=== PATIENT | male | born 1970 | race Caucasian/White ===

== ENCOUNTER 2019-01-27 15:00 | Outpatient (CLI) | payer BC, SELFPAY ==
--- NOTE | 2019-01-27 15:05 | DIABASSESS_ITS ---
DESCRIPTION/ASSESSMENT: Michel Carolina presents with his partner, Camila, for nutrition consult to improve diabetes outcomes. NUTRITION: Michel has already cut his portions and milk consumption and is eating little bread. He does drink regular pepsi for the caffeine some days, and especially when he is plowing in the middle of the night. Breakfast is a yogurt shake; lunch is whatever he can get with today being pizza; supper is meat starch and vegetable. He does have ~1 cup ice cream in the evening. MEDICATION: A1c 7.9 12/19/18 He is on all of the major medication categories including Metformin, glipizide, bydureon, januvia, invokana and Lantus 35units. He does not know if any of them are effective. MONITORING: Fasting blood sugar 140-170 now. He is not sure what fasting sugars were prior to his last PCP visit. PHYSICAL ACTIVITY: Active at work but does no regular physical activity. He does have sleep apnea and uses it when he doesn't fall asleep first. INTERVENTION: DSME is provided in the following AADE 7 areas based on patients interest and assessment of needs: Food Guidelines - reviewed food guide especially for Camila for meal planning. Identified carbohydrate sources and portions and considering to glycemic index. Focused on lunch and snacks to increase vegetable intake. Physical Activity - discussed options. He will bring up his weights and use them when he has time. Medication - discussed next step of mealtime insulin dosing. Explained food and correction coverage and that it would likely replace Glipizide. Discussed if need Bydureon and Januvia together. Monitoring - discussed getting better sense of blood sugars by testing before supper/bedtime occasionally. He will do a self study over the weekend and we will talk Sunday. ACTION PLAN: Increase vegetables at lunch Monitor blood sugars before supper and bedtime for 2-3 days Begin lifting weights starting slowly NOTE: He does not have his medication list but believes he is on Bydureon and Januvia which may be redundant. We will follow up by telephone in 1 week. Individual DSME/T ____ units billed TIME IN: OUT: No DM group education series being offered at this time.
== END 2019-01-27 15:20 ==
PROVIDERS: PCP Nurse Practitioner Family; Visit Provider Dietitian, Registered
DX: Z71.3 Dietary counseling and surveillance (principal); E11.9 Type 2 diabetes mellitus without complications; Z79.4 Long term (current) use of insulin
CPT/HCPCS: 97802

== ENCOUNTER 2019-03-21 07:44 | Outpatient (REF) | payer BC, SELFPAY ==
[2019-03-21 20:50] LABS: INR 0.9 (0.9-1.1); PTT Activated 24.4 sec (21.0-31.4); Prothrombin Time 9.3 sec (9.3-11.0)
[2019-03-21 20:59] LABS: Abs Immature Grans 0.08 k/cumm (0.0-0.09); Absolute Basophil Count 0.01 k/cumm (0.0-0.2); Absolute Eosinophil Count 0.08 k/cumm (0.0-0.7); Absolute Lymphocyte Count 1.41 k/cumm (1.2-3.4); Absolute Monocyte Count 0.49 k/cumm (0.11-0.7); Absolute Neutrophil Count 4.79 k/cumm (1.2-6.7); Basophils % 0.1; Eosinophils % 1.2; HCT 44.7 % (40.0-50.0); HGB 15.2 g/dL (13.5-17.5); Immature Grans % 1.2; Lymphocytes % 20.6; Mean Corpuscular Hemoglobin 28.5 pg (27.0-33.0); Mean Corpuscular Volume 83.9 fL (80-95); Mean Platelet Volume 10.6 fL (8.0-11.0); Monocytes % 7.1; Neutrophils % 69.8; Platelet Count 282 x1000/uL (130-400); RBC 5.33 m/cumm (4.50-6.00); RBC Distribution Width 13.9 % (11.8-14.1); White Blood Cell Count 6.86 k/cumm (4.4-10.8)
[2019-03-21 21:15] LABS: ALT 51 U/L (12-78); AST 17 U/L (15-37); Alkaline Phosphatase 49 U/L (46-116); Anion Gap 11.5 mmol/L (3-11); BUN 14 mg/dL (7-18); Bilirubin, Total 0.5 mg/dL (0.2-1.0); CO2 23.5 mmol/L (21.0-32.0); CREATININE 1.04 mg/dL (0.70-1.30); Calcium 9.6 mg/dL (8.5-10.1); Chloride 106 mmol/L (98-107); Glucose 142 mg/dL (70-100); Potassium 4.2 mmol/L (3.5-5.1); Sodium 141 mmol/L (136-145); Total Protein 7.2 g/dL (6.4-8.2)
== END 2019-03-21 08:04 ==
LOC: NCHCN 07:44
PROVIDERS: PCP Nurse Practitioner Family; Visit Provider Nurse Practitioner Family
DX: R13.10 Dysphagia, unspecified (principal); J30.9 Allergic rhinitis, unspecified; K76.0 Fatty (change of) liver, not elsewhere classified; M10.9 Gout, unspecified; G47.30 Sleep apnea, unspecified; E11.9 Type 2 diabetes mellitus without complications; E78.1 Pure hyperglyceridemia; E66.9 Obesity, unspecified
CPT/HCPCS: 80053; 85025; 85610; 85730

== ENCOUNTER 2019-07-25 06:52 | Day surgery (SDC) | payer BC, SELFPAY ==
[2019-07-25 07:15] VITALS: BP 126/83; PULSE 77; RESP 16; TEMP 36.5; O2SAT 96
[2019-07-25] MEDS: Lactated Ringers 1,000 ML 80 ML IV (07:34)
--- NOTE | 2019-07-25 08:10 | PDOC.DSDIS_ITS ---
Discharge Plan Disposition Patient Disposition: HOME Condition: Good Discharge Details Reason For Visit: EGD, colonoscopy Attending Provider: Estrella Deshpande Primary Care Provider: Patria Strong Home Meds and New Rx's Prescriptions: New omeprazole 20 mg capsule,delayed release(DR/EC) 20 mg PO DAILY Qty: 30 RF: 2 Continued Bydureon 2 mg/0.65 mL pen injector 2 mg SC QWEEK RF: 0 lisinopril 5 MG tablet 10 mg PO DAILY RF: 0 Januvia 25 MG tablet 100 mg PO DAILY RF: 0 glipizide 10 MG tablet extended release 24hr 10 mg PO BID RF: 0 gemfibrozil 600 MG tablet 600 mg PO BID RF: 0 aspirin 81 MG tablet,chewable 81 mg PO DAILY RF: 0 metformin 500 MG tablet extended release 24hr 2,000 mg PO DAILY RF: 0 indomethacin 50 MG capsule 50 mg PO TID Qty: 21 RF: 0 Lantus U-100 Insulin 100 unit/mL Solution 20 unit SUBCUT QHS RF: 0 atorvastatin 40 MG tablet 40 mg PO DAILY RF: 0 Invokana 300 MG tablet 300 mg PO DAILY RF: 0 Discontinued polyethylene glycol 3350 17 gram/dose powder 238 g PO ONCE Qty: 238 RF: 0 bisacodyl [Dulcolax (bisacodyl)] 5 mg tablet,delayed release (DR/EC) 5 mg PO ONCE Qty: 4 RF: 0 Discharge Instructions Additional Instructions: Findings: Your EGD showed a shallow stomach ulcer and inflammation of the esophagus. A prescription for omeprazole has been sent in. The ulcer may be related to taking aspirin or indomethicin. Two polyps were removed from the colon. My office will contact y [place] with biopsy results. Follow up: Plan for a follow up colonoscopy in 5 years. Please call if you develop: fevers >101.5 Nausea or Vomiting Abdominal pain that is not transient DAY SURGERY UNIT POST COLONOSCOPY INSTRUCTIONS 1. Because there will be medication in your system for the next 24 hours, you may feel a little sleepy. Your coordination will be affected. Therefore: a. Do not drive or operate dangerous equipment for 24 hours. b. Do not drink alcohol beverages for 24 hours (not even beer). c. Plan to go home and rest for the day. 2. Generally there are no restrictions on your activity after a day or so has gone by, but you may feel a bit fatigued for a few days. 3 After you arrive home you may have a light meal and return to a normal diet as you can tolerate it without feeling sick to your stomach. 4. After surgery, you may feel pain or discomfort. This should be only transient, but if it persists please contact your doctor. 5. If there are any questions regarding the findings of your procedure, please feel free to contact your doctor. 6. If you are unable to contact your doctor with a problem, contact the hospital at [phone]. 7. Continue all your regular medications unless directed otherwise. I understand the above instructions and have no questions. Signature of Patient or Responsible Adult Escort Date/Time Name of Responsible Adult Escort Signature of Nurse Date/Time Stand Alone Forms: Luzmaria Lind (JONGU) Activity:: Activity as Tolerated Diet:: As Tolerated Discharge Orders Discharge Orders: Discharge Order (Routine); Ordered 07/25/19 Ordered By: Estrella Deshpande DS: Diagnosis Discharge Diagnosis (1) Gastric ulcer: Status: Acute (2) Esophagitis: Status: Acute (3) Colon polyps: Status: Acute
--- NOTE | 2019-07-25 08:30 | BOWEL_PTH ---
PATIENT: Michel Carolina JR LOC: NURIS U#:[id number] AGE/SX: 49/M ROOM: RE07/25/[address]: Estrella Deshpande MD : 1970 BED: DIS: 07/25/2019 SPEC #: [id number] RECD: 07/25/19 11:50 STATUS: NASREEN REChai #: [id number] BRAD: 07/25/19 08:[address]: Estrella Deshpande DEPT: Surgical Specimen RECD BY: Miracle Peña ENTERED: 07/25/19 11:51 SP TYPE: Bowel OTHR DR: Patria Strong Tissues: 1 - STOMACH BIOPSY 2 - BIOPSY BOWEL 3 - BIOPSY BOWEL Procedures: GROSS AND MICRO LEVEL 4 Comments: [id number]
[2019-07-25 09:33] VITALS: BP 109/73; PULSE 66; RESP 16; TEMP 36.3; O2SAT 96
--- NOTE | 2019-07-25 12:51 | ENDO_ITS ---
DATE OF PROCEDURE: July 25, 2019 PREOPERATIVE DIAGNOSIS: 1. History of esophageal ulcer. 2. Family history of colon cancer. POSTOPERATIVE DIAGNOSIS: 1. Esophagitis. 2. Shallow gastric ulcer. 3. Colon polyps. PROCEDURE: 1. Esophagogastroduodenoscopy with biopsy. 2. Colonoscopy with snare polypectomy. SURGEON: Estrella Deshpande M.D. ANESTHESIA: General. INDICATIONS: This is a 49-year-old man who presents for his first colon evaluation. He had a grandf ather and an aunt on the same side of the family with colon cancer. He is asymptomatic. He also had an upper endoscopy last year that showed an esophageal ulcer. He denies any symptoms of significant heartburn or dysphagia. PROCEDURE: He was placed in the left lateral decubitus position. Propofol was titrated to sedation. The scope was advanced into his esophagus under direct visualization and down into the stomach and duodenum. There was no duodenitis or ulcers noted. In the gastric antrum there was a shallow ulcer with a black eschar. The periphery of this was biopsied. This is likely related to his aspirin and/ or indomethacin usage. Retroflex view of the fundus and lesser curvature showed no other abnormaliti es. The GE junction exhibited a linear area of esophagitis that exhibited some healing. There was n o evidence of Taylor's esophagus or strictures. The air was suctioned from the stomach and the scop e withdrawn with no other esophageal lesions found. Digital rectal examination revealed no abnormalities. The scope was advanced to the cecum without di fficulty. The ileocecal valve and appendiceal orifice were clearly identified. Across from the ileo cecal valve there was a < 1 cm polyp that was removed with snare polypectomy. I did not use cautery due to its location in the cecum. This was retrieved for pathology. No other abnormalities were se en throughout the ascending or transverse colon. In the descending colon at about 50 cm there was an approximately 1 cm polyp on a narrow stock. This was removed using the snare with cautery and a hem ostatic clip applied to the base as a precaution. The polyp could be suctioned free and was retrieve d for pathology. No other abnormalities were seen throughout the descending, sigmoid colon or rectum , including on retroflex view. He tolerated the procedure well and was stable to recovery. I have s ent in a prescription for a daily proton pump inhibitor. It is anticipated he will need a colonoscop y again in five years pending biopsy results. cc: Patria Strong A.P.R.N.
== END 2019-07-25 10:06 | disposition home or self-care (01) ==
PROVIDERS: PCP Nurse Practitioner Family; Visit Provider Surgery
PROC: (CPT 45385; principal; 2019-07-25 08:15)
DX: Z12.11 Encounter for screening for malignant neoplasm of colon (principal); Z80.0 Family history of malignant neoplasm of digestive organs; K29.00 Acute gastritis without bleeding; D12.0 Benign neoplasm of cecum; D12.4 Benign neoplasm of descending colon; I10 Essential (primary) hypertension; E11.9 Type 2 diabetes mellitus without complications; Z79.84 Long term (current) use of oral hypoglycemic drugs
CPT/HCPCS: 45385; 43239; 88305

== ENCOUNTER 2019-10-24 07:15 | Outpatient (CLI) | payer BC, SELFPAY ==
[2019-10-24 08:23] LABS: ALT 57 U/L (16-63); AST 25 U/L (15-37); Alkaline Phosphatase 70 U/L (46-116); Anion Gap 8.6 mmol/L (3-11); BUN 16 mg/dL (7-18); Bilirubin, Total 0.4 mg/dL (0.2-1.0); CO2 26.4 mmol/L (21.0-32.0); CREATININE 0.93 mg/dL (0.70-1.30); Calcium 9.2 mg/dL (8.5-10.1); Calculated LDL 2 mg/dL (<100); Chloride 103 mmol/L (98-107); Cholesterol 99 mg/dL (<200); Glucose 187 mg/dL (74-106); HDL Cholesterol 28 mg/dL (40-60); Potassium 4.4 mmol/L (3.5-5.1); Sodium 138 mmol/L (136-145); Total Protein 7.1 g/dL (6.4-8.2); Triglyceride 345 mg/dL (<150)
[2019-10-24 16:14] LABS: LDL CHOLESTEROL 41 mg/dL (<100)
== END 2019-10-24 07:35 ==
PROVIDERS: PCP Nurse Practitioner Family; Visit Provider Nurse Practitioner Family
DX: E11.9 Type 2 diabetes mellitus without complications (principal); E78.1 Pure hyperglyceridemia; R16.0 Hepatomegaly, not elsewhere classified; K76.0 Fatty (change of) liver, not elsewhere classified; E66.9 Obesity, unspecified
CPT/HCPCS: 36415; 80053; 80061; 83721; 83036

== ENCOUNTER 2020-12-03 14:45 | Outpatient (REF) | payer BC, SELFPAY ==
[2020-12-03 21:01] LABS: Uric Acid 6.1 mg/dL (3.5-7.2)
== END 2020-12-03 14:46 | disposition home or self-care (01) ==
LOC: NCHCN 14:45
PROVIDERS: PCP Nurse Practitioner Family; Visit Provider Nurse Practitioner Family
DX: M10.9 Gout, unspecified (principal)
CPT/HCPCS: 84550

== ENCOUNTER 2021-02-08 21:13 | Outpatient (REF) | payer BC, SELFPAY ==
[2021-02-08 13:25] LABS: Abs Immature Grans 0.04 10^3/uL (0.0-0.06); Absolute Basophil Count 0.03 10^3/uL (0.0-0.2); Absolute Eosinophil Count 0.07 10^3/uL (0.0-0.7); Absolute Lymphocyte Count 1.29 10^3/uL (1.2-3.4); Absolute Monocyte Count 0.33 10^3/uL (0.1-0.8); Absolute Neutrophil Count 3.16 10^3/uL (1.2-6.7); Basophils % 0.6; Eosinophils % 1.4; HCT 44.4 % (40.0-50.0); HGB 14.6 g/dL (13.5-17.5); Immature Grans % 0.8; Lymphocytes % 26.2; MCH 27.2 pg (27.0-33.0); MCHC 32.9 % (32.0-36.0); MCV 82.7 fL (80-95); MPV 9.8 fL (8.0-11.0); Monocytes % 6.7; Neutrophils % 64.3; Nucleated RBC 0 %; Platelet Count 270 10^3/uL (130-400); RBC 5.37 10^6/uL (4.36-5.78); RDW 13.5 % (11.8-14.1); RDW-SD 40.4 fL; WBC 4.92 10^3/uL (4.4-10.8)
[2021-02-08 14:48] LABS: ALT 81 U/L (16-63); AST 45 U/L (15-37); Alkaline Phosphatase 61 U/L (46-116); Anion Gap 12.1 mmol/L (3-11); BUN 19 mg/dL (7-18); Bilirubin, Total 0.6 mg/dL (0.2-1.0); CO2 25.9 mmol/L (21.0-32.0); Calcium 9.1 mg/dL (8.5-10.1); Calculated LDL 31 mg/dL (<100); Chloride 102 mmol/L (98-107); Cholesterol 105 mg/dL (<200); Glucose 250 mg/dL (74-106); HDL Cholesterol 35 mg/dL (40-60); Magnesium 1.4 mg/dL (1.8-2.4); Potassium 4.3 mmol/L (3.5-5.1); Sodium 140 mmol/L (136-145); Triglyceride 195 mg/dL (<150); Vitamin B12 695 pg/mL (193-986)
[2021-02-08 15:01] LABS: Uric Acid 4.9 mg/dL (3.5-7.2)
== END 2021-02-08 21:14 | disposition home or self-care (01) ==
LOC: NCHCN 21:13
PROVIDERS: PCP Nurse Practitioner Family; Visit Provider Nurse Practitioner Family
DX: E11.9 Type 2 diabetes mellitus without complications (principal); E78.1 Pure hyperglyceridemia; K76.0 Fatty (change of) liver, not elsewhere classified; R16.0 Hepatomegaly, not elsewhere classified; E66.9 Obesity, unspecified; K74.60 Unspecified cirrhosis of liver
CPT/HCPCS: 80053; 80061; 82607; 83735; 84550; 85025

== ENCOUNTER 2021-02-28 18:20 | Outpatient (REF) | payer BC, SELFPAY ==
[2021-02-28 20:47] LABS: Magnesium 1.6 mg/dL (1.8-2.4)
== END 2021-02-28 18:21 | disposition home or self-care (01) ==
LOC: NCHCN 18:20
PROVIDERS: PCP Nurse Practitioner Family; Visit Provider Nurse Practitioner Family
DX: E83.42 Hypomagnesemia (principal)
CPT/HCPCS: 83735

== ENCOUNTER 2021-03-17 08:47 | Outpatient (REF) | payer BC, SELFPAY ==
[2021-03-17 13:25] LABS: Magnesium 1.5 mg/dL (1.8-2.4)
== END 2021-03-17 08:48 | disposition home or self-care (01) ==
LOC: NCHCN 08:47
PROVIDERS: PCP Nurse Practitioner Family; Visit Provider Nurse Practitioner Family
DX: E83.42 Hypomagnesemia (principal)
CPT/HCPCS: 83735

== ENCOUNTER 2021-05-05 16:09 | Outpatient (REF) | payer BC, SELFPAY ==
[2021-05-05 20:33] LABS: Magnesium 1.6 mg/dL (1.8-2.4)
== END 2021-05-05 16:10 | disposition home or self-care (01) ==
LOC: NCHCN 16:09
PROVIDERS: PCP Nurse Practitioner Family; Visit Provider Nurse Practitioner Family
DX: E83.42 Hypomagnesemia (principal); K76.0 Fatty (change of) liver, not elsewhere classified; E11.9 Type 2 diabetes mellitus without complications; R16.0 Hepatomegaly, not elsewhere classified
CPT/HCPCS: 83735

== ENCOUNTER 2021-08-08 14:01 | Outpatient (REF) | payer BC, SELFPAY ==
[2021-08-08 20:55] LABS: Abs Immature Grans 0.08 10^3/uL (0.0-0.06); Absolute Basophil Count 0.03 10^3/uL (0.0-0.2); Absolute Eosinophil Count 0.04 10^3/uL (0.0-0.7); Absolute Lymphocyte Count 1.46 10^3/uL (1.2-3.4); Absolute Monocyte Count 0.47 10^3/uL (0.1-0.8); Absolute Neutrophil Count 4.31 10^3/uL (1.2-6.7); Basophils % 0.5; Eosinophils % 0.6; HGB 14.8 g/dL (13.5-17.5); Immature Grans % 1.3; Lymphocytes % 22.8; MCH 27.6 pg (27.0-33.0); MCHC 33.6 % (32.0-36.0); MCV 81.9 fL (80-95); Monocytes % 7.4; Neutrophils % 67.4; Nucleated RBC 0 %; Platelet Count 312 10^3/uL (130-400); RBC 5.37 10^6/uL (4.36-5.78); RDW 13.4 % (11.8-14.1); RDW-SD 39.7 fL; WBC 6.39 10^3/uL (4.4-10.8)
[2021-08-08 21:14] LABS: ALT 71 U/L (16-63); AST 38 U/L (15-37); Albumin 4.5 g/dL (3.4-5.0); Alkaline Phosphatase 52 U/L (46-116); Anion Gap 10.9 mmol/L (3-11); BUN 17 mg/dL (7-18); Bilirubin, Total 0.4 mg/dL (0.2-1.0); CO2 28.1 mmol/L (21.0-32.0); CREATININE 0.9 mg/dL (0.70-1.30); Calcium 9.8 mg/dL (8.5-10.1); Chloride 106 mmol/L (98-107); Glucose 143 mg/dL (74-106); Magnesium 1.9 mg/dL (1.8-2.4); Potassium 4.5 mmol/L (3.5-5.1); Sodium 145 mmol/L (136-145); Total Protein 7.5 g/dL (6.4-8.2)
== END 2021-08-08 14:02 | disposition home or self-care (01) ==
LOC: NCHCN 14:01
PROVIDERS: PCP Nurse Practitioner Family; Visit Provider Nurse Practitioner Family
DX: E83.42 Hypomagnesemia (principal); E11.9 Type 2 diabetes mellitus without complications; K29.70 Gastritis, unspecified, without bleeding; K74.60 Unspecified cirrhosis of liver; M10.9 Gout, unspecified
CPT/HCPCS: 80053; 83735; 85025

== ENCOUNTER 2021-12-13 15:30 | Emergency (ER) | payer OTHER, SELFPAY ==
--- NOTE | 2021-12-13 15:45 | DI.US_ITS ---
Exam(s) US LOWER EXTREMITY VENOUS LT EXAM: US LOWER EXTREMITY VENOUS LT CLINICAL HISTORY: calf pain. TECHNIQUE: Lower extremity venous ultrasound performed using grayscale, color-flow, and spectral Do ppler analysis. COMPARISON: No exams were available for comparison FINDINGS: The common femoral, femoral and popliteal veins demonstrate normal compressibility, augmentation, and color Doppler. The posterior tibial veins are patent. No saphenous vein thrombosis or other superfi cial venous thrombosis is seen. No Gupta's cyst is seen. There is localized edema in the subcutaneo us fat. IMPRESSION: Localized edema. No drainable fluid collection. No evidence of DVT. DATA REPOSITORY:
[2021-12-13 15:52] VITALS: BP 137/87; PULSE 94; RESP 18; TEMP 36.4; O2SAT 97
--- NOTE | 2021-12-13 15:58 | W.ED.GENAD ---
Discharge Plan Disposition Patient Disposition: HOME Condition: Good Discharge Details Clinical Impression: Muscle strain Primary Care Provider: Patria Strong ED Provider: Fannie Valero Home Meds and New Rx's Prescriptions: Continued Bydureon 2 mg/0.65 mL pen injector 2 mg SC QWEEK 0RF lisinopril 5 MG tablet 10 mg PO DAILY 0RF Januvia 25 MG tablet 100 mg PO DAILY 0RF Label Comments: not sure of dose glipizide 10 MG tablet extended release 24hr 10 mg PO BID 0RF gemfibrozil 600 MG tablet 600 mg PO BID 0RF aspirin 81 MG tablet,chewable 81 mg PO DAILY 0RF metformin 500 MG tablet extended release 24hr 2,000 mg PO DAILY 0RF indomethacin 50 MG capsule 50 mg PO TID Qty: 21 0RF Rx Instructions: take three times daily with food until symptoms resolved Lantus U-100 Insulin 100 unit/mL Solution 20 unit SUBCUT QHS 0RF omeprazole 20 mg capsule,delayed release(DR/EC) 20 mg PO DAILY Qty: 30 2RF atorvastatin 40 MG tablet 40 mg PO DAILY 0RF Invokana 300 MG tablet 300 mg PO DAILY 0RF Discharge Instructions Instructions: Muscle Strain (ED) Additional Instructions: Your ultrasound to concerning for fluid collection. Did not show any blood clot. This likely represents a small muscle tear. Please encourage rest, ice, elevation. Tylenol and ibuprofen as needed for discomfort. Please continue with compression over this area to help with any swelling and discomfort. You may continue with the Vito wrap or alternatively, may purchase a compression hose [id number]. I would like you to follow-up with your primary care provider next week for reevaluation. If you develop any new or worsening symptoms please seek care urgently once again. In the interim, particularly when you are trying to elevate and rest her calf, please review the ankle pumps we discussed to help prevent blood clot forming. Referrals: Patria Strong [Primary Care Provider] - Discharge Data Discharge Date/Time-TO BE ENTERED AT DEPARTURE: 12/13/21 16:51 Medical Decision Making Patient is a pleasant 51-year-old gentleman presenting today with chief complaint of left calf pain. He reports that he came on suddenly when he stepped back in his truck while at work. Believes that he may have stepped on or stumbled on something. Since then, he been having significant burning pain in the posterior calf. States that this is worse with movement, particularly dorsiflexion of the ankle. He denies any injuries from the incident, did not fall. Denies numbness or tingling. Patient is not anticoagulated. He denies history of DVT or PE. Denies shortness of breath. No recent change in medication. Patient not anticoagulated. He denies being sedentary, smoking, recent travel. Patient primarily concern for potential torn muscle. On exam, patient appears nontoxic. He does have a positive Leslie test and pain in the posterior calf. No pain anteriorly. 2+ distal pulses. Sensation is intact. Range of motion and strength is intact. He does have several varicosities in the same region but no palpable cords, erythema. His mechanism of injury is more consistent with musculoskeletal injury. However, the location exam, particularly with his varicosities, does have me concerned for DVT. Will give Tylenol ibuprofen to help with discomfort. Again, primarily because I do have fairly low suspicion for DVT. We will move forward with ultrasound exam. Also considered potentially ruptured Gupta's cyst although the pain seems fairly inferior to this area. He is not having pain with mariia weightbearing, no pain with palpation of the tibia or fibula, and without the fall I have low suspicion for fracture at this time. FINDINGS: The common femoral, femoral and popliteal veins demonstrate normal compressibility, augmentation, and color Doppler. The posterior tibial veins are patent.? No saphenous vein thrombosis or other superficial venous thrombosis is seen.? No Gupta's cyst is seen.? There is localized edema in the subcutaneous fat. IMPRESSION: Localized edema.? No drainable fluid collection.? No evidence of DVT.? Per technical communication teacher, she is concerned for possible muscle tear based on the area of fluid collection. This does fit more with the patient's history. Discussed the findings with the patient. Agrees with my current elevation. Tylenol and ibuprofen for discomfort. Will apply Vito wrap to get some compression. Return precautions were discussed. Advise follow-up with primary care in 1 week for reevaluation. All of his questions and concerns were addressed and he is in agreement with this plan. HPI General Date/Time Provider Initiated Documentation: 12/13/21 15:34. Limitations to Documentation: no limitations. Information obtained by: patient and RN notes reviewed. History of Present Illness 51 year old M presents to the emergency department with the chief complaint of left calf pain, described as severe, with intensity rated at 7. Quality is described as burning, and is localized to the left and lower extremity. Patient reports no radiation. Patient started experiencing this minute(s) and it has been constant. improves with Immobilization improves symptom(s), Movement worsens symptoms . Patient notes no other symptoms.. Patient did receive the following treatments prior to arrival, none Related Data Home Medications Medication Instructions Recorded Confirmed aspirin 81 mg chewable tablet 81 mg PO DAILY 08/15/15 07/25/19 gemfibrozil 600 mg tablet 600 mg PO BID 08/15/15 07/25/19 glipizide 10 mg tablet, extended 10 mg PO BID 08/15/15 07/25/19 release 24 hr lisinopril 5 mg tablet 10 mg PO DAILY 08/15/15 07/25/19 sitagliptin 25 mg tablet (Januvia) 100 mg PO DAILY 08/15/15 07/25/19 metformin 500 mg tablet,extended 2,000 mg PO DAILY 11/14/15 07/25/19 release 24hr indomethacin 50 mg capsule 50 mg PO TID #21 cap 02/20/16 07/25/19 atorvastatin 40 mg tablet 40 mg PO DAILY 10/17/17 07/25/19 canagliflozin 300 mg tablet 300 mg PO DAILY 10/17/17 07/25/19 (Invokana) exenatide microspheres 2 mg/0.65 2 mg SC QWEEK 07/03/19 07/25/19 mL subcutaneous pen injector (Bydureon) insulin glargine 100 unit/mL 20 unit SUBCUT QHS 07/23/19 07/25/19 subcutaneous solution (Lantus U-100 Insulin) omeprazole 20 mg capsule,delayed 20 mg PO DAILY #30 cap 07/25/19 release Previous Rx's Medication Instructions Recorded indomethacin 50 mg capsule 50 mg PO TID #21 cap 02/20/16 omeprazole 20 mg capsule,delayed 20 mg PO DAILY #30 cap 07/25/19 release Allergies Allergy/AdvReac Type Severity Reaction Status Date / Time environmental Allergy Mild Uncoded 07/25/19 07:11 General Stated Complaint: Orthopedic ALEXANDRE: 4 Review of Systems Constitutional Constitutional: Reports as per HPI, Denies fever(s) and Denies weakness Cardiovascular Cardiovascular: Reports as per HPI and Denies dyspnea Respiratory Respiratory: Reports as per HPI, Denies cough, Denies pain on inspiration and Denies dyspnea Musculoskeletal Musculoskeletal: Reports as per HPI and Denies tingling Integumentary/Breasts Skin/Breast: Reports as per HPI, Denies rash and Denies wounds Neurologic Neurologic: Reports as per HPI, Denies tingling, Denies paresthesias and Denies weakness PFSH All Active Problems (Updated 12/13/21 @ 16:40 by DREA Keating) Muscle strain (Acute) Colon polyps (Acute) Esophagitis (Acute) Gastric ulcer (Acute) Gastritis (Acute) Medical History (Updated 12/13/21 @ 16:40 by DREA Keating) Acute pancreatitis Allergic rhinitis Constipation Diabetes Gout Hypertriglyceridemia Obesity Sleep apnea Surgical History (Updated 07/25/19 @ 09:15 by Estrella Deshpande MD) Appendectomy EGD - MAC (11/13/17) Repair of inguinal hernia S/P colonoscopy 07/25/19 tubes in ears Vasectomy Family History (Updated 10/26/17 @ 10:58 by Clair Paniagua MD) Other Colon cancer Diabetes Heart disease Social History (Updated 07/03/19 @ 15:45 by DREA Charles) Smoking/Tobacco Use Status: Never Smoking risk assessment performed?: Yes Alcohol Intake: current Alcohol Intake frequency: holidays/special occasions only Drug use: Never Current gender identity: male Do you feel safe at home: Yes Do you feel safe in your relationship?: Yes Exam Const General: cooperative, healthy appearing, comfortable, no acute distress, well developed and well groomed Nutritional Appearance: average body habitus and well nourished Orientation: alert and awake Resp Effort & Inspection: normal respiratory effort, able to speak in complete sentences and no respiratory distress Cardio Rate: regular rate Rhythm: regular rhythm Skin General skin exam: no rashes or lesions noted Lesions: no lesions Rashes: no rashes Trauma: no lacerations or abrasions Neuro General: patient alert and patient awake Cognition: normal cognition Speech: speech normal Gait: normal gait Motor: muscle tone normal throughout Sensory Exam: no sensory deficits noted Extrem Upper/lower leg/hip images: 1. Area of maximal discomfort. No pain in posterior knee. Patient is 2+ distal pulses. Intact capillary refill. Full range of motion of the knee and ankle. He does have increased comfort with dorsiflexion of the ankle. Sensation is intact. Patient does have positive Homans' sign. No discoloration. No palpable cord. Patient does have several varicosities noted. They seem to be present on both legs but more prominent on the left lower extremity on the posterior calf. No pain with palpation over the tibia or the fibula. Psych Appearance: grossly normal and well kempt Mental Status: mental status grossly normal Speech and Movement: speech and movement normal Course Vital Signs Vital signs: Vital Signs Temperature 36.4 C L 12/13/21 15:52 Pulse 94 H 12/13/21 15:52 Respiratory Rate 18 12/13/21 15:52 Blood Pressure 137/87 12/13/21 15:52 Pulse Oximetry 97 12/13/21 15:52 Temperature 36.4 C L 12/13/21 15:52 Temperature Source Temporal Artery Scan 12/13/21 15:52 Pulse 94 H 12/13/21 15:52 Respiratory Rate 18 12/13/21 15:52 Respiratory Effort Non-Labored 12/13/21 15:55 Blood Pressure 137/87 12/13/21 15:52 Blood Pressure Position Sitting 12/13/21 15:52 Pulse Oximetry 97 12/13/21 15:52 Oxygen Delivery Method Room Air 12/13/21 15:52 Oxygen Flow Rate 0 12/13/21 15:52
[2021-12-13] MEDS: Ibuprofen 600 MG TAB PO (16:44)
[2021-12-13] MEDS: Acetaminophen 325 MG TAB 650 MG PO (16:44)
[2021-12-13 16:52] VITALS: BP 130/84; PULSE 90; RESP 14; TEMP 36.5; O2SAT 96
--- NOTE | 2021-12-13 17:07 | NUR.NOTE ---
documentation reviewed by Sanjana Li RN.
== END 2021-12-13 16:51 | disposition home or self-care (01) ==
PROVIDERS: Emergency Provider Physician Assistant; PCP Nurse Practitioner Family
DX: S86.812A Strain of other muscle(s) and tendon(s) at lower leg level, left leg, initial encounter (principal); X58.XXXA Exposure to other specified factors, initial encounter; Y99.0 Civilian activity done for income or pay
CPT/HCPCS: 99284; 93971; 99283

== ENCOUNTER 2022-03-12 16:56 | Emergency (ER) | payer BC, SELFPAY ==
[2022-03-12 17:06] VITALS: BP 123/86; PULSE 94; RESP 16; TEMP 36.8; O2SAT 98
[2022-03-12] MEDS: Fluorescein STRIPS 100/BOX 1 MG OP (17:36)
[2022-03-12] MEDS: Tetracaine 0.5% 4 ML BTL OP (17:36)
--- NOTE | 2022-03-12 18:26 | ED.GENADUL_ITS ---
Discharge Plan Disposition Patient Disposition: HOME Condition: Stable Discharge Details Clinical Impression: Corneal abrasion Primary Care Provider: Patria Strong ED Provider: Nicole Javier Home Meds and New Rx's Prescriptions: Continued Bydureon 2 mg/0.65 mL pen injector 2 mg SC QWEEK lisinopril 5 MG tablet 10 mg PO DAILY Januvia 25 MG tablet 100 mg PO DAILY Label Comments: not sure of dose glipizide 10 MG tablet extended release 24hr 10 mg PO BID gemfibrozil 600 MG tablet 600 mg PO BID aspirin 81 MG tablet,chewable 81 mg PO DAILY metformin 500 MG tablet extended release 24hr 2,000 mg PO DAILY indomethacin 50 MG capsule 50 mg PO TID Qty: 21 0RF Rx Instructions: take three times daily with food until symptoms resolved insulin glargine [Lantus U-100 Insulin] 100 unit/mL Solution 20 unit SUBCUT QHS omeprazole 20 mg capsule,delayed release(DR/EC) 20 mg PO DAILY Qty: 30 2RF atorvastatin 40 MG tablet 40 mg PO DAILY Invokana 300 MG tablet 300 mg PO DAILY Discharge Instructions Instructions: Corneal Abrasion (ED) Additional Instructions: Take Tylenol as needed for pain Worsening Presented Use erythromycin 3 times daily Use Lacri-Lube ointment in between the antibiotic eyedrops Should your pain persist longer than 48 hours I recommend seeing her eye doctor Referrals: Patria Strong [Primary Care Provider] - Discharge Data Discharge Date/Time-TO BE ENTERED AT DEPARTURE: 03/12/22 18:35 Medical Decision Making Refer to above patient is placed on erythromycin ointment Will use Lacri-Lube Instructed to follow-up with ophthalmology and return earlier should he have new or worsening complaint HPI General Date/Time Provider Initiated Documentation: 03/12/22 17:20 . HPI Narrative: This 52-year-old male presents with foreign body in right eye. Patient reportedly was working on a car and felt something go in his eye. He states that he attempted to irrigate his eye and did not feel it was successful. He presents secondary to persistent discomfort. He had this reportedly occurred around 11 AM. He is otherwise reportedly healthy. He wears reading glasses only. He denies any headache. Related Data Home Medications Medication Instructions Recorded Confirmed aspirin 81 mg chewable tablet 81 mg PO DAILY 08/15/15 03/12/22 gemfibrozil 600 mg tablet 600 mg PO BID 08/15/15 03/12/22 glipizide 10 mg tablet, extended 10 mg PO BID 08/15/15 03/12/22 release 24 hr lisinopril 5 mg tablet 10 mg PO DAILY 08/15/15 03/12/22 sitagliptin 25 mg tablet (Januvia) 100 mg PO DAILY 08/15/15 03/12/22 metformin 500 mg tablet,extended 2,000 mg PO DAILY 11/14/15 03/12/22 release 24hr indomethacin 50 mg capsule 50 mg PO TID #21 caps 02/20/16 03/12/22 atorvastatin 40 mg tablet 40 mg PO DAILY 10/17/17 03/12/22 canagliflozin 300 mg tablet 300 mg PO DAILY 10/17/17 03/12/22 (Invokana) exenatide microspheres 2 mg/0.65 2 mg subcut QWEEK 07/03/19 03/12/22 mL subcutaneous pen injector (Bydureon) insulin glargine 100 unit/mL 20 unit subcut QHS 07/23/19 03/12/22 subcutaneous solution (Lantus U-100 Insulin) omeprazole 20 mg capsule,delayed 20 mg PO DAILY #30 caps 07/25/19 03/12/22 release Previous Rx's Medication Instructions Recorded indomethacin 50 mg capsule 50 mg PO TID #21 caps 02/20/16 omeprazole 20 mg capsule,delayed 20 mg PO DAILY #30 caps 07/25/19 release Allergies Allergy/AdvReac Type Severity Reaction Status Date / Time environmental Allergy Mild Uncoded 03/12/22 17:10 General Stated Complaint: EyeProblem ALEXANDRE: 4 Review of Systems Narrative: Review of systems obtained x3 and negative aside from indication PFSH All Active Problems (Updated 03/12/22 @ 18:27 by DREA Huggins) Corneal abrasion (Acute) Colon polyps (Acute) Esophagitis (Acute) Gastric ulcer (Acute) Gastritis (Acute) Medical History (Updated 03/12/22 @ 18:27 by DREA Huggins) Acute pancreatitis Allergic rhinitis Constipation Diabetes Gout Hypertriglyceridemia Obesity Sleep apnea Surgical History (Updated 07/25/19 @ 09:15 by Estrella Deshpande MD) Appendectomy EGD - MAC (11/13/17) Repair of inguinal hernia S/P colonoscopy 07/25/19 tubes in ears Vasectomy Family History (Updated 10/26/17 @ 10:58 by Clair Paniagua MD) Other Colon cancer Diabetes Heart disease Social History (Updated 07/03/19 @ 15:45 by DREA Charles) Smoking/Tobacco Use Status: Never Smoking risk assessment performed?: Yes Alcohol Intake: current Alcohol Intake frequency: holidays/special occasions only Drug use: Never Substance use type: does not use Current gender identity: male Do you feel safe at home: Yes Do you feel safe in your relationship?: Yes Exam Eyes Other: No abrasion noted, no foreign body Lids everted without foreign body Pupils equal round reactive to light and accommodation, no pain with extraocular movements Course Vital Signs Vital signs: Vital Signs Temperature 36.8 C 03/12/22 17:06 Pulse 94 H 03/12/22 17:06 Respiratory Rate 16 03/12/22 17:06 Blood Pressure 123/86 03/12/22 17:06 Pulse Oximetry 98 03/12/22 17:06 Temperature 36.8 C 03/12/22 17:06 Temperature Source Temporal Artery Scan 03/12/22 17:06 Pulse 94 H 03/12/22 17:06 Respiratory Rate 16 03/12/22 17:06 Respiratory Effort Non-Labored 03/12/22 17:09 Blood Pressure 123/86 03/12/22 17:06 Blood Pressure Position Sitting 03/12/22 17:06 Pulse Oximetry 98 03/12/22 17:06 Oxygen Delivery Method Room Air 03/12/22 17:06 Oxygen Flow Rate 0 03/12/22 17:06 Pain Level 7 03/12/22 17:06 PAWSS Have you Been Recently Intoxicated or Drunk Within the Last 30 days?: No Have you Ever Experienced Previous Episodes of Alcohol Withdrawal?: No Have you ever Experienced Withdrawal Seizures?: No Have you ever Experienced Delirium Tremens(DT)s?: No Have you ever undergone Alcohol Rehabilitation Treatment (i.e, inpt ot out patient treatment programs)?: No Have you ever Experienced Blackouts?: No Have you ever Combined Alcohol with other Downers within the last 90 days?: No Have you ever Combined Alcohol with any other Substance of Abuse during the last 90 days?: No Positive Blood Alcohol level on Presentation? [PCS.BAL]: No Evidence of Increased Autonomic Activity (i.e. HR>120, tremor, sweating, agitation, nausea)?: No Result: 0
[2022-03-12 18:30] VITALS: BP 124/80; PULSE 65; RESP 17; TEMP 37; O2SAT 99
[2022-03-12] MEDS: Erythromycin Ophth Oint 3.5 GM TUBE OD (18:48)
== END 2022-03-12 18:35 | disposition home or self-care (01) ==
PROVIDERS: Emergency Provider Physician Assistant; PCP Nurse Practitioner Family
DX: S05.01XA Injury of conjunctiva and corneal abrasion without foreign body, right eye, initial encounter (principal); X58.XXXA Exposure to other specified factors, initial encounter
CPT/HCPCS: 99283

== ENCOUNTER 2022-03-20 17:30 | Outpatient (REF) | payer BC, SELFPAY ==
[2022-03-20 15:09] LABS: Abs Immature Grans 0.08 10^3/uL (0.0-0.06); Absolute Basophil Count 0.04 10^3/uL (0.0-0.2); Absolute Eosinophil Count 0.11 10^3/uL (0.0-0.7); Absolute Neutrophil Count 5.75 10^3/uL (1.2-6.7); Basophils % 0.5; Eosinophils % 1.3; HCT 44.3 % (40.0-50.0); HGB 14.8 g/dL (13.5-17.5); Lymphocytes % 20.8; MCH 28.6 pg (27.0-33.0); MCHC 33.4 % (32.0-36.0); MCV 86 fL (80-95); MPV 10.4 fL (8.0-11.0); Monocytes % 6.1; Neutrophils % 70.3; Platelet Count 342 10^3/uL (130-400); RBC 5.18 10^6/uL (4.36-5.78); RDW 13.2 % (11.8-14.1); RDW-SD 41.2 fL; WBC 8.18 10^3/uL (4.4-10.8)
[2022-03-20 15:45] LABS: ALT 82 U/L (16-63); AST 45 U/L (15-37); Albumin 4.2 g/dL (3.4-5.0); Alkaline Phosphatase 62 U/L (46-116); Anion Gap 12.3 mmol/L (3-11); BUN 20 mg/dL (7-18); Bilirubin, Total 0.4 mg/dL (0.2-1.0); CO2 23.7 mmol/L (21.0-32.0); CREATININE 0.9 mg/dL (0.70-1.30); Calcium 9.2 mg/dL (8.5-10.1); Calculated LDL 28 mg/dL (<100); Chloride 102 mmol/L (98-107); Cholesterol 103 mg/dL (<200); Glucose 193 mg/dL (74-106); HDL Cholesterol 32 mg/dL (40-60); Magnesium 1.5 mg/dL (1.8-2.4); Potassium 4.6 mmol/L (3.5-5.1); Sodium 138 mmol/L (136-145); Total Protein 7.3 g/dL (6.4-8.2); Triglyceride 215 mg/dL (<150); Vitamin B12 618 pg/mL (193-986)
[2022-03-20 17:02] LABS: Uric Acid 5.3 mg/dL (3.5-7.2)
--- OUTSIDE RECORDS SUMMARY | 2022-03-20 17:35 | XMS_ITS | Clinical Summary ---
:1970 Author Organization [facility] [place] [address] Care Team Providers Name Role Phone Patria Strong APRN Primary Care Provider [phone] Allergies Active Allergy Reactions Severity Noted Date Comments Cis Free Text Allergy pollle n. CIS - itchy eyes, sneeze Medications Medication Sig Dispensed Refills Start Date End Date Status budesonide (RHINOCORT 0 10/06/2004 Active AQUA) 32 mcg/Actuation nasal spray desloratadine 0 10/06/2004 Activ e (CLARINEX) 5 mg tablet atorvastatin TAKE ONE TABLET BY 0 10/08/2019 Active (Lipitor) 40 mg MOUTH AT BEDTIME Tablet fluticasone USE ONE SPRAY IN 0 06/19/2019 Active propionate (FLONASE) EACH NOSTRIL TWO 50 mcg/actuation TIMES A DAY [place], Suspension gemfibroziL (Lopid) TAKE ONE TABLET BY 0 10/08/2019 Active 600 mg Tablet MOUTH TWICE A DAY 30 MINUTES BEFORE BREAKFAST AND 30 MINUTES BEFORE DINNER glipiZIDE XL TAKE TWO TABLETS BY 0 10/09/2019 Active (Glucotrol XL) 10 mg MOUTH EVERY DAY Tablet Extended Rel 24 hr lisinopriL TAKE ONE TABLET BY 0 09/18/2019 Active (Prinivil;Zestril) 10 MOUTH EVERY DAY mg Tablet BD Ultra-Fine Mini USE WITH BYDUREON 0 10/10/2019 Active Pen Needle 31 gauge x ONCE WEEKLY 12/07 Needle aspirin EC 81 mg Take 81 mg by mouth 0 Active Tablet, Delayed daily. Release (E.C.) SITagliptin (Januvia) Take 100 mg by 0 Active 100 mg Tablet mouth daily. Diabetic Supplies, by Misc.(Non-Drug; 0 Active Miscellan. Misc Combo Route) route. One-touch metFORMIN Take 1,000 mg by 0 Act germain (GLUCOPHAGE) 1,000 mg mouth 2 times daily Tablet (with meals). Lantus Solostar U-100 Inject 36 units 45 mL 3 09/29/2020 Active Insulin pen subcutaneous once a day Active Problems Problem Noted Date History of colon polyps 11/26/2019 Dysphagia 11/26/2019 NAFLD (nonalcoholic fatty liver disease) 11/26/2019 Gout 11/26/2019 Sleep apnea 11/26/2019 Type 2 diabetes mellitus, with long-term current use o f insulin 11/26/2019 Hypertriglyceridemia 11/26/2019 Obesity 11/26/2019 History of pancreatitis 11/26/2019 Encounters Date Type Specialty Care Team Description 03/06/2022 Orders Only Sandy Mcgovern, NAFLD (brittanie lcoholic fatty liver disease); DREA Benavidez Type 2 diabetes mellitus with other specified complication, with long-term current use of insulin; Hypertriglyceri demia 02/21/2022 Transcribe Orders Primary Care Tae, Hepatic ci rrhosis, unspecified hepatic cirrhosis type, unspecified whether ascites present; Patria H, Fatty liver; EDGE DRUMMER Hepatomegaly from Last 3 Months Family History Medical History Relation Comments Diabetes Mother Relation Status Comments Mother Social History Tobacco Use Types Packs/Day Years Used Date Never Smoker Smokeless Tobacco: Never Used Sex Assigned at Date Recorded Not on file Last Filed Vital Signs Vital Sign Reading Time Taken Comments Blood Pressure 125/80 07/01/2020 8:24 AM EDT Pulse 87 07/01/2020 8:24 AM EDT Temperature 36.4 ??C (97.6 ??F) 07/01/2020 8:24 AM EDT Respiratory Rate - - Oxygen Saturation 98% 07/01/2020 8:24 AM EDT Inhaled Oxygen Concentration - - Weight 97.5 kg (215 lb) 07/01/2020 8:24 AM EDT Height 170.2 cm (5' 7) 07/01/2020 8:24 AM EDT Body Mass Index 33.67 07/01/2020 8:24 AM EDT Plan of Treatment Upcoming Encounters Date Type Specialty Care Team Description 04/18/2022 Office Visit Gastroenterology Dallin Mcgovern PA [facility] [address] [place], [place] [address] (Wo rk) Health Maintenance Due Date Last Done Comments Covid-19 Vaccine (#1) 02/09/1977 Pneumococcal Vaccine: At-Risk 5-64yrs (1 02/09/1978 of 2 - PPSV23) DM Opthalmology Exam 02/09/1982 HIV screen 02/09/1990 Hepatitis C Screening 02/09/1990 Tdap adult 02/09/1991 Tetanus vaccine 02/09/1991 Colonoscopy 02/09/2017 DM Hemoglobin A1c 10/01/2020 07/01/2020 Influenza (Flu) vaccine (1 of 1 - 05/25/2021 Influenza standard series) DM Creatinine yearly 07/01/2021 07/01/2020, 11/25/2019 DM Urine Microalbumin yearly 07/01/2021 07/01/2020 Zoster vaccine (1 of 2) 02/09/2022 Insurance Payer Benefit Plan Subscriber ID Effective Dates Phone Address Type / Group [facility] [id number] 2018-[place] [phone] [address] [facility] [address] Care Teams Marker Shipments Relationship Specialty Start Date End Date Patria Strong, EDGE DRUMMER PCP - General Family Medicine 11/05/19 [address] [place], [place] [id number]
--- OUTSIDE RECORDS SUMMARY | 2022-03-20 17:35 | XMS_ITS | Encounter Summary ---
:1970 Author Organization [place] [id number] Care Team Providers Name Role Phone Patria Strong APRN Primary Care Provider [phone] Reason for Referral Consultation (Routine) - Closed Specialty Diagnoses / Procedures Referred By Contact Refer red To Contact Endocrinology Diagnoses Type 2 diabetes mellitus with hyperglycemia, with long-term current use of insulin Baudilio Lopez MD Kline, Erika L, FELICITA [facility] [place] [address] [place] [id number] Referral ID Status Reason Start Date Expiration Visits Visits Date Requested Authorized [id number] Closed Continuity of 07/01/2020 07/01/2021 1 1 Care Encounter Details Date Type Department Care Team Description 07/01/2020 Office Visit Endocrinology at [facility] Baudilio Tian Type 2 diabetes [facility] MD John mellitus with [facility] Medical hyperglycemia, [place] [phone] Center long-term current use [phone] [place], [place] [phone] of insulin Social History Tobacco Use Types Packs/Day Years Used Date Never Smoker Smokeless Tobacco: Never Used Sex Assigned at Date Recorded Not on file documented as of this encounter Last Filed Vital Signs Vital Sign Reading [...] Mass Index 33.67 07/01/2020 8:24 AM EDT documented in this encounter Patient Instructions Patient InstructionsCrBaudilio patel MD - 07/01/2020 8:45 AM EDT Start actos 15mg daily Lantus: increase or decrease by 2 units as necessary to maintain goal fasting blood sugar between 100-150 Continue metformin 1000mg twice daily and januvia 50mg daily Check your blood sugar twice daily: before breakfast and later in the day Labs: get labs about 1 week before followu See Urvashi our gang supervisor documented in this encounter Progress Notes Baudilio Lopez MD - 07/01/2020 8:45 AM EDT Mr. Michel Carolina Wilfrido is an 50 y.o. male who presents for ongoing care of Diabetes type II Saw me for initial telephone visit in December 2019 Interval history: Patient tells me that there was a period of dietary indiscretion within the last 1-2 months that mayaccount for his rising A1c but overall he has tried to maintain good dietary habits. He has been in good health recently and has no complaints today Notable medical comorbidities: Dyslipidemia/hypertriglyceridemia Sleep apnea Hypertension Type 2 diabetes Sahu Pancreatitis (severe, required hospitalization) Current DM meds: lantus 25 units Glipizide XL 20mg daily januvia 50 mg Metformin 2000mg daily ?? Exercise: he is physically active at his job for [place] [employer], but less so during winter months (spends a lot of time driving) Eye doctor: sees yearly, no evidence of DM related disease at last visit Feet: No problems Glucose monitoring: Typically he checks his glucose once daily in the evening/bedtime, typically values are in mid 100s No recent hypoglycemia Current Outpatient Medications: ??? metFORMIN (GLUCOPHAGE) 1,000 mg Tablet, Take 1,000 mg by mouth 2 times daily (with meals)., Disp: , Rfl: ??? atorvastatin (Lipitor) 40 mg Tablet, TAKE ONE TABLET BY MOUTH AT BEDTIME, Disp: , Rfl: ??? fluticasone propionate (FLONASE) 50 mcg/actuation [place], Suspension, USE ONE SPRAY IN EACH NOSTRIL TWO TIMES A DAY, Disp: , Rfl: ??? gemfibroziL (Lopid) 600 mg Tablet, TAKE ONE TABLET BY MOUTH TWICE A DAY 30 MINUTES BEFORE BREAKFAST AND 30 MINUTES BEFORE DINNER, Disp: , Rfl: ??? glipiZIDE XL (Glucotrol XL) 10 mg Tablet Extended Rel 24 hr, TAKE TWO TABLETS BY MOUTH EVERY DAY, Disp: , Rfl: ??? Lantus Solostar U-100 Insulin pen, INJECT 25 UNITS AT BEDTIME, Disp: , Rfl: ??? lisinopriL (Prinivil;Zestril) 10 mg Tablet, TAKE ONE TABLET BY MOUTH EVERY DAY, Disp: , Rfl: ??? BD Ultra-Fine Mini Pen Needle 31 gauge x 3/16 Needle, USE WITH BYDUREON ONCE WEEKLY, Disp: , Rfl: ??? aspirin EC 81 mg Tablet, Delayed Release (E.C.), Take 81 mg by mouth daily., Disp: , Rfl: ??? SITagliptin (Januvia) 100 mg Tablet, Take 100 mg by mouth daily., Disp: , Rfl: ??? Diabetic Supplies, Miscellan. Misc, by Misc.(Non-Drug; Combo Route) route. One-touch, Disp: , Rfl: ??? canagliflozin (Invokana) 300 mg Tablet, Take 300 mg by mouth daily., Disp: , Rfl: ??? budesonide (RHINOCORT AQUA) 32 mcg/Actuation nasal spray, , Disp: , Rfl: ??? desloratadine (CLARINEX) 5 mg tablet, , Disp: , Rfl: Past Medical History: Diagnosis Date ??? Fatty liver disease, nonalcoholic ??? Hypertension ??? Hypertriglyceridemia ??? Sleep apnea ??? Type 2 diabetes mellitus Patient Active Problem List Diagnosis ??? History of colon polyps ??? Dysphagia ??? NAFLD (nonalcoholic fatty liver disease) ??? Gout ??? Sleep apnea ??? Type 2 diabetes mellitus, with long-term current use of insulin ??? Hypertriglyceridemia ??? Obesity ??? History of pancreatitis Physical Exam: Patient Vitals for the past 24 hrs: Temp Pulse BP SpO2 07/01/20 0824 36.4 ??C (97.6 ??F) 87 125/80 98 % General: no acute distress, pleasant, sitting comfortably Face: not round or red Eyes: no lid lag; normal eye movements Nose: not enlarged Mouth: Mucous membranes moist Neck: no supraclavicular fat pads; trachea midline Respiratory: symmetrical chest expansion, breathing comfortably on room air Cardiovascular: 2+ DP pulses, regular rhythm Musculoskeletal: moving all 4 extremities normally; normal male musculature Skin: normal temperature/texture, no foot wounds Neurological: no tremors; normal sensation on feet to 10g monofilament Psychological: alert/oriented to person, place, time; normal affect; memory intact; normal judgement/insight Radiology Studies: Laboratory Data: Component Latest Ref Rng & Units 07/01/2020 Chol, Total mg/dL 100 HDL mg/dL 31 Chol/HDL Ratio ratio 3.2 Chol/HDL Interpretation See Note Creatinine 0.80 - 1.50 mg/dL 0.97 eGFR >=60 mL/min/1.73 m?? 92 eGFR >=60 mL/min/1.73 m?? 107 Alb/Cr Ratio, Random 0 - 29 mcg/mg Cr 24 U Albumin Conc, Random mg/L 21.6 U Creatinine mg/dL 91 Hemoglobin A1C 4.3 - 5.6 % 10.0 (H) Est Avg Gluc mg/dL 241 LDL Chol Direct mg/dL 40 Assessment / Plan: 1) Diabetes Mellitus Type II, worsening glycemic control Unclear if recent worsening is due to brief dietary indiscretion or worsening beta cell function -diet/lifestyle: made referral to our gang supervisor Urvashi Alfaro for nutrition evaluation and education -medications: avoid increasing the dose of Januvia or switching to GLP1r agonist given history of pancreatitis in the past Start actos 15mg daily for insulin sensitization. There is also some data that this can be helpful in terms of reducing the adverse effects of fatty liver disease Discussed potential risks of weight gain, edema, lower bone density, and potentially bladder cancer Do not increase dose further because there is an interaction between Actos and gemfibrozil that willraise the serum levels of the former drug, he is aware of this Lantus: increase or decrease by 2 units as necessary to maintain goal fasting blood sugar between 100-150 Continue metformin 1000mg twice daily and januvia 50mg daily Check your blood sugar twice daily: before breakfast and later in the day Given history of pancreatitis with unclear beta cell reserve, will check fasting c peptide at next visit 2) CV risk reduction Lipids acceptable on statin and fibrate. HDL is low, we discussed nonpharmacologic methods to raise this over time Please do not hesitate to contact me with questions COUNSELING/COORDINATION OF CARE DOCUMENTATION: I spent 25 minutes face to face with the patient, 20 of which was spent counseling about the issues described above Return to clinic 3-4 months Baudilio Lopez MD Resources Representativetreadle cut off saw operator Endocrinology Section [facility] documented in this encounter Plan of Treatment Upcoming Encounters Date Type Specialty Care Team Description 04/18/2022 Office Visit Gastroenterology Dallin Mcgovern PA [facility] [address] [place], [place] [address] (Wo rk) Scheduled Referrals Name Type Priority Associated Diagnoses Order S chedule Referral to Outpatient Referral Routine Type 2 diabetes Order ed: Nutrition Services mellitus with 07/01/20 20 hyperglycemia, with long-term current use of insulin documented as of this encounter Visit Diagnoses Diagnosis Type 2 diabetes mellitus with hyperglyce joaquín, with long-term current use of insulin documented in this encounter Care Teams Apartment Maintenance Worker Relationship Specialty Start Date End Date Patria Strong, BRAN PCP - General Family Medicine 11/05/19 [address] [place] [address] documented as of this encounter
--- OUTSIDE RECORDS SUMMARY | 2022-03-20 17:35 | XMS_ITS | Clinical Summary ---
:1970 Author Organization [facility] Address [address] [place] [address] Care Team Providers Name Role Phone Patria Strong APRN Primary Care Provider [phone] Social History Tobacco Use Types Packs/Day Years Used Date Never Assessed Sex Assigned at Date Recorded Not on file Plan of Treatment Not on file Care Teams Drawer Hardware Worker Relationship Specialty Start Date End Date Patria Strong APRN PCP - General 07/28/19 [address] [place], [place] [address]
--- OUTSIDE RECORDS SUMMARY | 2022-03-20 17:35 | XMS_ITS | Encounter Summary ---
:1970 Author Organization [facility] Address [address] [place] [address] Care Team Providers Name Role Phone Inderjit Rodgers MD Primary Care Provider Encounter Details Date Type Department Care Team Description 11/13/2017 Results Only [facility] Patrick Lloyd, [address] [place] [address] (Wo rk) Social History Tobacco Use Types Packs/Day Years Used Date Never Assessed Sex Assigned at Date Recorded Not on file documented as of this encounter Plan of Treatment Not on filedocumented as of this encounter Procedures Procedure Name Priority Date/Time Associated Diagnosis Comme [facility] SURGICAL PATHOLOGY Routine 11/13/2017 15:36 Resul ts for this EST procedure are i n the results section. documented in this encounter Results SURGICAL PATHOLOGY (11/13/2017 15:36 EST) Pathology Report: SURGICAL PATHOLOGY REPORT [facility] Reports generated via electronic interface contain marysol ginal data; LABORATORY however they are lacking the format of the original re port. SERVICES Caution should be taken when reading/interpreting unfo rmatted reports. Name: ? BENJAMIN CAROLINA ? Accession #: ? [id number] ? : ? 1970 (Age: [age]) ??M ? Collect Date: ? 11/13/2017 ? Location: ? [facility] ? Receive Date: ? 11/13/19 18 ? Provider: PATRICK LLOYD MD Copy to: ELSIE INMAN IN [place] ? Final Pathologic Diagnosis: A. ??STOMACH, ANTRUM, ENDOSCOPIC BIOPSY:- Mild reactiv e gastropathy. - Negative for Helicobacter pylori organisms. B. ??STOMACH, POLYP, ENDOSCOPIC POLYPECTOMY:- Mild terell ctive gastropathy. - Negative for Helicobacter pylori organisms. - No polypoid lesion noted. C. ??GASTROESOPHAGEAL JUNCTION, ENDOSCOPIC BIOPSY: - Squamocolumnar junctional mucosa with ulceration. - Negative for viral cytopathic effect. - Negative for Taylor's specialized-columnar epitheli um. Document reviewed and electronically signed by: KASEY ORNELAS MD Report ??Date: 11/15/2017 12:06 By the signature above, the attending physician certif ies that he/she has personally conducted a gross and/or microscopic examin ation of the described specimens and rendered or confirmed the above diagnosi s. Specimen(s) Received: A. ??Antral bxs B. ??Gastric polyp C. ??GE junction bxs Clinical History: R upper quadrant pain; polyp , gastritis, esophagitis, ulcers; A. R/O H. pylori; C. R/O Taylor's Gross Description: A. ?Received in formalin labelled with proper p atient identification (initials S, K) and #1 antr al bxs are two pink-guo tissues (0.3 x 0.2 x 0.1 cm and 0.4 x 0.2 x 0.1 cm). Entirely submitted in A1. B. ?Received in formalin labelled with proper p atient identification (initials S, K) and #2 judith yonatan polyp is a pink-guo tissue fragment (0.3 x 0.3 x 0.2 cm). Submitted intact in B1. C. ?Received in formalin labelled with proper p atient identification (initials S, K) and #3 GE j unction are three pink-guo tissues (0.3 x 0.2 x 0.1 cm to 0.4 x 0.3 x 0.1 cm). Entirely submitted in C1. DREA Carey (ASCP) 11/13/2017 4:16 PM End of Report Specimen Performing Organization Address City/State/ZIP Code Phon e Number [facility] [address] [place] [address] SERVICES documented in this encounter Visit Diagnoses Not on filedocumented in this encounter Care Teams Shirring Machine Operator Relationship Specialty Start Date End Date Inderjit Rodgers MD PCP - General 08/03/15 07/27/19 [address] [place] [address] documented as of this encounter
--- OUTSIDE RECORDS SUMMARY | 2022-03-20 17:35 | XMS_ITS | Encounter Summary ---
:1970 Author Organization [facility] [place] [address] Care Team Providers Name Role Phone Patria Strong APRN Primary Care Provider [phone] Reason for Visit Reason Comments Medication Refill Encounter Details Date Type Department Care Team Description 07/14/2021 Refill Endocrinology at [facility] Baudilio Tian [place] [facility] [place] [address] [place] [address] [phone] (Wo rk) Social History Tobacco Use Types Packs/Day Years Used Date Never Smoker Smokeless Tobacco: Never Used Sex Assigned at Date Recorded Not on file documented as of this encounter Plan of Treatment Upcoming Encounters Date Type Specialty Care Team Description 04/18/2022 Office Visit Gastroenterology Dallin Mcgovern PA [facility] [address] [address] (Wo rk) documented as of this encounter Visit Diagnoses Not on filedocumented in this encounter Care Teams Ancient Art Curator Relationship Specialty Start Date End Date Patria Strong APRN PCP - General Family Medicine 11/05/19 [address] [place] [address] documented as of this encounter
--- OUTSIDE RECORDS SUMMARY | 2022-03-20 17:35 | XMS_ITS | Encounter Summary ---
:1970 Author Organization [facility] [place] [address] Care Team Providers Name Role Phone Patria Strong APRN Primary Care Provider [phone] Encounter Details Date Type Department Care Team Description 03/06/2022 Orders Only Gastroenterology at [place], LAURA (n onalcoholic fatty liver disease); [facility] DREA Benavidez Type 2 diabetes mellitus with other spec ified complication, with long-term current use of insulin; [facility] [place] [address] [place] [id number] Social History Tobacco Use Types Packs/Day Years Used Date Never Smoker Smokeless Tobacco: Never Used Sex Assigned at Date Recorded Not on file documented as of this encounter Plan of Treatment Upcoming Encounters Date Type Specialty Care Team Description 04/18/2022 Office Visit Gastroenterology Dallin Mcgovern PA [facility] [address] [place] [address] (Wo rk) Scheduled Orders Name Type Priority Associated Diagnoses Order S chedule CBC (with Diff) Lab Routine NAFLD (nonalcoholic fatty Expected: liver disease) 03/06/2022 (Approximate), Expires: 09/05/2022 Comprehensive metabolic Lab Routine NAFLD (nonalcohol ic fatty Expected: panel (non-fasting) liver disease) 2021 (Approximate), Expires: 09/05/2022 Prothrombin Time Lab Routine NAFLD (nonalcoholic fatt y Expected: liver disease) 03/06/2022 (Approximate), Expires: 09/05/2022 Hemoglobin A1c Lab Routine Type 2 diabetes mellitus w ith Expected: other specified complication , 03/06/2022 with long-term current use o f (Approximate), insulin Expires: 09/05/2022 Lipid Panel (Reflex Lab Routine Hypertriglyceridemia Expected: Direct LDL) 03/06/2022 (Approximate), Expires: 09/05/2022 documented as of this encounter Visit Diagnoses Diagnosis NAFLD (nonalcoholic fatty liver disease) Other chronic nonalcoholic liver disease Type 2 diabetes mellitus with other spec ified complication, with long-term current use of insulin Hypertriglyceridemia Pure hyperglyceridemia documented in this encounter Care Teams Bushel Girl Relationship Specialty Start Date End Date Patria Strong APRN PCP - General Family Medicine 11/05/19 [address] [place] [address] documented as of this encounter
--- OUTSIDE RECORDS SUMMARY | 2022-03-20 17:35 | XMS_ITS | Encounter Summary ---
:1970 Author Organization [facility] [place] [address] Care Team Providers Name Role Phone Patria Strong APRN Primary Care Provider [phone] Reason for Referral Consultation (Routine) - Closed Specialty Diagnoses / Procedures Referred By Contact Refer red To Contact Endocrinology Diagnoses NAFLD (nonalcoholic fatty liver disease) Obesity, unspecified classification, unspecified obesity type, unspecified whether serious comorbidity present Dallin Mcgovern, Baudilio Lopez, Type 2 diabetes mellitus wit h other specified complication, with long-term current use of insulin Hypertriglyceridemia NAFLD (nonalcoholic fatty liver disease) - Obesity, unspecified classification, unspecified obesity type, DREA KAT unspecified whether serious comorbidity present Type 2 diabetes mellitus with other specified complication, with long-term current use of insulin Hypertriglyceridemia [facility] [place] [address] [place] [address] [place] [address] Fax: Referral ID Status Reason Start Date Expiration Date Visits V isits Requested Authorized [id number] Closed Consult, 11/26/2019 11/25/2020 1 1 Test & Treat Reason for Visit Consultation (Routine) - Specialty Diagnoses / Procedures Referred By Contact Refer red To Contact Gastroenterology Diagnoses Hepatomegaly, not elsewhere classified Fatty (change of) liver, not elsewhere classified HEPATOMEGALY, FATTY LIVER Patria Strong, [facility] 4[facility] HVAC RESIDENTIAL SERVICE TECHNICIAN [facility] [address] [place] [address] [place] [address] Fax: Referral ID Status Reason Start Date Expiration Date Visits V isits Requested Authorized [id number] Consult, Test 11/05/2019 11/05/2020 6 6 [facility] PCP Updated and/or Approved Encounter Details Date Type Department Care Team Description 11/25/2019 Office Visit Gastroenterology at [place], NAFLD (n onalcoholic fatty liver disease) (Primary Dx); [facility] DREA Benavidez Obesity, unspecified classification, uns pecified obesity type, unspecified whether serious comorbidity present; [facility] Type 2 di abetes mellitus with other specified complication, with long-term current use of insulin; [facility] [place] [address] [place], [place] [phone] Social History Tobacco Use Types Packs/Day Years Used Date Never Smoker Smokeless Tobacco: Never Used Sex Assigned at Date Recorded Not on file documented as of this encounter Last Filed Vital Signs Vital Sign Reading Time Taken Comments Blood Pressure 120/79 11/25/2019 12:44 PM EST Pulse 88 11/25/2019 12:44 PM EST Temperature - - Respiratory Rate - - Oxygen Saturation - - Inhaled Oxygen Concentration - - Weight 98.6 kg (217 lb 6.4 oz) 11/25/2019 12:44 PM EST Height - - Body Mass Index - - documented in this encounter Progress Notes Dallin Mcgovern PA - 11/25/2019 1:00 PM EST Images from the original note were not included. HEPATOLOGY NEW PATIENT CONSULTATION Patient: Michel Carloina Jr. Sex: male Date of : 1970 PRIVATE WEALTH ADVISOR: Dallin Mcgovern PA-C PCP: Patria Strong APRN Requesting Provider: Patria Strong 11/25/19 REASON FOR CONSULTATION: Hepatomegaly, fatty liver PROBLEM LIST Patient Active Problem List Diagnosis Code ??? History of colon polyps Z86.010 ??? Dysphagia R13.10 ??? NAFLD (nonalcoholic fatty liver disease) K76.0 ??? Gout M10.9 ??? Sleep apnea G47.30 ??? Type 2 diabetes mellitus, with long-term current use of insulin E11.9, Z79.4 ??? Hypertriglyceridemia E78.1 ??? Obesity E66.9 ??? History of pancreatitis Z87.19 HISTORY OF PRESENT ILLNESS Michel Carolian Jr. is a 49 y.o. male referred to hepatology clinic for evaluation of hepatomegaly and fatty liver. He is accompanied by his girlfriend. He states he is never been told about any problem with his liver in the past that he is aware of. Hehas never been an alcohol drinker by any means and states that he has only drank once in a while. This also came up when he had a bout of pancreatitis a while back and everybody thought he was an alcoholic. Other GI history includes acid reflux which was an issue for a while and then he was placed on omeprazole, which worked well, but states he just ran out of this. He has been having issues with controlling his diabetes. He believes he was supposed to be seen by aspecialist in [place] but they have to cancel his appointment and they never rescheduled. He is interested now in a referral to Endocrinology here at instead. He notes that his weight has fluctuated a lot over the years and seems to gain a lot of weight in the winter and loses weight in the summer. He is not particularly active. REVIEW OF SYSTEMS General: Denies weight loss, fatigue, poor sleep, fever, chills, night sweats Skin: Denies new rashes, easy bruising, jaundice EENT: Denies blurred vision or change in vision, hearing loss, sinus problems, dry eyes or mouth Endocrine: Denies change in tolerance to heat or cold, excessive thirst Cardiovascular: Denies chest pain, palpitations or irregular heart beat, pain in legs with walking, swelling in feet Pulmonary: Denies SOB, persistent cough, coughing up blood, asthma or wheezing Gastrointestinal: Denies poor appetite, abdominal pain, indigestion, trouble swallowing, diarrhea, constipation, nausea/vomitting, rectal bleeding or blood in stools Musculoskeletal: Denies pain in joints, back pain, neck or shoulder pain, muscle cramping, movement of legs at night Neurologic: Denies blackouts or loss of consciousness, headache, weakness or numbness in legs or arms, tremor, worsening memory and concentration Genitourinary: Denies frequent urination, blood in urine Psychiatric: Denies changes in mood or behavior, anxiety MEDICATIONS Current Outpatient Medications Medication Sig Dispense Refill ??? atorvastatin (Lipitor) 40 mg Tablet TAKE ONE TABLET BY MOUTH AT BEDTIME ??? Bydureon 2 mg/0.65 mL Pen Injector INJECT 2MG UNDER THE SKIN ONCE A WEEK ??? fluticasone propionate (FLONASE) 50 mcg/actuation [place], Suspension USE ONE SPRAY IN EACH NOSTRIL TWO TIMES A DAY ??? gemfibroziL (Lopid) 600 mg Tablet TAKE ONE TABLET BY MOUTH TWICE A DAY 30 MINUTES BEFORE BREAKFAST AND 30 MINUTES BEFORE DINNER ??? glipiZIDE XL (Glucotrol XL) 10 mg Tablet Extended Rel 24 hr TAKE TWO TABLETS BY MOUTH EVERY DAY ??? Lantus Solostar U-100 Insulin pen INJECT 25 UNITS AT BEDTIME ??? lisinopriL (Prinivil;Zestril) 10 mg Tablet TAKE ONE TABLET BY MOUTH EVERY DAY ??? BD Ultra-Fine Mini Pen Needle 31 gauge x 3/16 Needle USE WITH BYDUREON ONCE WEEKLY ??? aspirin EC 81 mg Tablet, Delayed Release (E.C.) Take 81 mg by mouth daily. ??? SITagliptin (Januvia) 100 mg Tablet Take 100 mg by mouth daily. ??? Diabetic Supplies, Miscellan. Misc by Misc.(Non-Drug; Combo Route) route. One-touch ??? canagliflozin (Invokana) 300 mg Tablet Take 300 mg by mouth daily. ??? budesonide (RHINOCORT AQUA) 32 mcg/Actuation nasal spray (Patient not taking: No sig reported) ??? desloratadine (CLARINEX) 5 mg tablet (Patient not taking: No sig reported) No current facility-administered medications for this visit. ALLERGIES Allergies Allergen Reactions ??? Cis Free Text Allergy polllen. CIS - itchy eyes, sneeze SOCIAL HISTORY Occupation: Works for [employer] Marital status: , with girlfriend; 3 children Smoking: None Alcohol: Rarely Other drug: None Hepatitis C Risk Factors: IV drugs? Never Intranasal drugs? Never Tattoos? Multiple, a couple homemade service? None Blood transfusions? None Close contact/relationship with known hepatitis? None FAMILY HISTORY Negative except as noted below Medical problem Family member Medical Problem Family member Medical Problem Family member Alcohol drug Problem Kidney disease Mental illness Anemia or Blood Disease Liver disease MGF? Possibly father Depression Diabetes Mother, MGM Liver cancer Seizure High blood pressure Stroke Lung disease Heart disease MGF Clotting problems Colon Cancer Maternal aunt, MGF High cholesterol Immune disorders Other Cancer PHYSICAL EXAM Vitals: 11/25/19 1244 BP: 120/79 Pulse: 88 Weight: 98.6 kg (217 lb 6.4 oz) There is no height or weight on file to calculate BMI. Constitutional: Well appearing, appropriate, no acute distress Skin: No cyanosis, no palmar erythema, no jaundice, no spider angiomata Head: Normocephalic, PERRLA, sclerae anicteric, oropharynx within normal limits CVS: RRR, normal S1/S2, no murmurs, rubs, or gallops, equal pulses in bilateral upper and lower extremities Lungs: Clear to auscultation bilaterally, no wheezes, rales, or rhonci Abdomen: Obese, nontender, nondistended, no hepatosplenomegaly, no masses, no fluid wave, no umbilical hernia, no caput medussae, positive bowel sounds Neurologic: Alert and oriented x 3, no asterixis or tremor Extremities: No edema, no clubbing, no muscle wasting, no joint swelling RESULTS Recent Results (from the past 24 hour(s)) Iron and TIBC Result Value Ref Range Iron 71 45 - 160 mcg/dL TIBC 361 250 - 450 mcg/dL Iron Saturation 20 20 - 50 % Ferritin Result Value Ref Range Ferritin 149 30 - 400 ng/mL Comprehensive metabolic panel (non-fasting) Result Value Ref Range Glucose Lvl 126 65 - 199 mg/dL BUN 18 10 - 20 mg/dL Creatinine 0.92 0.80 - 1.50 mg/dL Sodium 141 135 - 145 mmol/L Potassium 4.1 3.5 - 5.0 mmol/L Chloride 102 98 - 107 mmol/L CO2 23 22 - 31 mmol/L Anion Gap 16 (H) 5 - 15 mmol/L Calcium 10.4 8.5 - 10.5 mg/dL Total Protein 7.9 6.1 - 8.0 gm/dL Albumin 5.1 3.2 - 5.2 gm/dL AST 31 0 - 39 unit/L ALT 50 0 - 55 unit/L Alk Phos 49 40 - 130 unit/L Total Bilirubin 0.5 0.2 - 1.3 mg/dL eGFR 99 >=60 mL/min/1.73 m?? eGFR 114 >=60 mL/min/1.73 m?? Hemogram Result Value Ref Range WBC 7.7 4.0 - 9.5 x10(3)/mcL RBC 5.92 (H) 4.58 - 5.54 x10(6)/mcL Hemoglobin 16.2 13.7 - 16.5 gm/dL Hematocrit 48.7 (H) 40.5 - 48.5 % MCV 82.3 (L) 82.9 - 93.1 fL MCH 27.4 (L) 27.5 - 32.1 pg MCHC 33.3 32.0 - 35.7 gm/dL Platelets 311 145 - 357 x10(3)/mcL RDWSD 39.7 36.0 - 45.0 fL RDWCV 13.2 11.4 - 13.8 % MPV 9.8 7.6 - 12.9 fL nRBC % Auto 0.0 % nRBC Abs Auto 0.000 0.000 - 0.000 x10(3)/mcL Differential, Automated Result Value Ref Range Neutrophils % 66.9 % Neutr Abs (ANC) 5.15 1.70 - 6.10 x10(3)/mcL Lymphocytes % 23.3 % Lymphocytes Abs 1.8 0.9 - 3.2 x10(3)/mcL Monocytes % 6.9 % Monocyte Abs 0.5 0.3 - 0.9 x10(3)/mcL Eosinophils % 1.0 % Eosinophils Abs 0.1 0.0 - 0.4 x10(3)/mcL Basophils % 0.5 % Basophils Abs 0.0 0.0 - 0.1 x10(3)/mcL Immature Gran % 1.40 % Mai Gran Abs 0.11 (H) 0.00 - 0.04 x10(3)/mcL FIB-4 = 0.66 (advanced fibrosis not likely) Non-DH Laboratory: 10/24/19 @ [place]: Imaging: US abdomen limited 11/10/19: LIVER: ------ Right Lobe Length: 22.9 cm Echogenicity/Echotexture: Coarse echogenic parenchyma with capsular nodularity Portal Veins: Hepatopetal ?? Comment: No focal lesion seen. Marked hepatomegaly. ?? GALLBLADDER: Cholelithiasis: No stones visualized Wall Thickness: Normal wall thickness Focal Tenderness: Negative sonographic Gar's sign ?? BILIARY TRACT: Intrahepatic Ducts: Normal Extrahepatic Ducts: Normal Common Duct Size: 4.0 mm ?? --------- PANCREAS: --------- Head: Normal Tail: Poorly visualized due to overlying bowel Body: Normal ?? RIGHT KIDNEY: Size (cm) L: 10.9 Cortical Thickness: Normal Cortical Echogenicity: Normal Hydronephrosis: No sonographic evidence ?? ------ AORTA: ------ Measurements (cm): Proximal AP: 2.4 ?? Comment: Normal in caliber where visualized. ?? ---- IVC: ---- Normal in caliber where visualized. ?? FLUID COLLECTIONS: No ascites in the imaged RUQ & RLQ. IMPRESSION ?? 1. Marked hepatomegaly. There is coarsened hepatic parenchyma with capsular nodularity consistent with cirrhosis. No focal hepatic lesions seen. 2. Diffusely increased echogenicity consistent with hepatic steatosis. 3. No cholelithiasis. 4. RIGHT kidney is normal. No hydronephrosis. Fibroscan Results Today: Median kPa: 6.3 Mean IQR: 8% (goal is <30 %) Number of valid measurements: 10 (10 required) Number of invalid measurements: 0 Predicted fibrosis stage: F0-F1 CAP (dB/m): 396 XL probe used ASSESSMENT/PLAN Michel Carolina Jr. is a 49 y.o. male with a history of type 2 diabetes, obesity, hypertriglyceridemia, and GI history of pancreatitis and GERD who was found on recent ultrasound to have hepatic steatosis and a nodular liver capsule concerning for possible cirrhosis. Recent LFTs were relatively unremarkable aside from ALT of 57. He has no significant alcohol use history. I believe given his multiple metabolic risk factors that this very much likely is a case of nonalcoholic fatty liver disease (NAFLD) or perhaps nonalcoholic steatohepatitis (GARCIA), however this is a histologic diagnosis. A FibroScan today is reassuring and suggesting no significant fibrosis, although elevated CAP score is suggestive of high-grade steatosis. A FIB-4 score of 0.66 also suggests he does not have any advanced fibrosis, with a 90% negative predictive value. He fortunately does not show any concerning signsor symptoms of advanced chronic liver disease. Repeat LFTs today are stable and only just above ideal limits. Iron studies today are entirely within normal limits ruling out iron overload. No other work-up is necessary at this time for any other causes of chronic liver disease. I am however checking aliver fibrosis panel, and if this is also reassuring, we can confidently say that he very likely does not have significant fibrosis. The nodular liver capsule reading on his ultrasound may have been related to poor penetrance of the ultrasound in the setting of his obesity. Fatty liver disease is one of the most common causes of liver disease in the [place]. It is regarded as the liver manifestation of metabolic syndrome, associated with cardiovascular disease and predisposition to developing diabetes. The goals of treatment are treating or managing risk factors. We discussed the importance of lifestyle interventions and making healthy food choices as the backboneof treatment for this condition. We set realistic weight loss goals; goal is to focus on loosing 10-15% of total body weight over a year by incorporating regular exercise, lifestyle modifications, and healthy food choices including portion control. In addition I would recommend avoiding high fructose corn syrup and artifical sweeteners. Diet should be low in carbohydrates and high in protein, similarto a diabetic or Mediterranean diet. I specifically discussed with him that it seems his diabetes has been difficult to control as he is on several medications for this and A1c is still elevated at 8.0% in September. It sounds as if they were supposed to see a specialist, so I will take the liberty [facility] Specifically, I am hopeful that he could see Dr. Lopez who can also help with him in regardto weight management and possible weight loss pharmacotherapy. If he is unable to lose any weight, he may be an excellent candidate for bariatric surgery which not only will significantly improve his long-term risk of liver disease but will dramatically improve his metabolic syndrome. Plan: -Referral to Endocrinology, ideally Dr. Lopez. -Await results of liver fibrosis panel. -Provided information on Mediterranean diet today. -Other diet and lifestyle changes as described above. -No utility for vitamin E given underlying diabetes. -Consider addition of omega-3 fatty acids/fish oil for ongoing hypertriglyceridemia. -Continue atorvastatin at current dose. Lipophilic statins recently have been described to provide some benefit and long-term stability of GARCIA. -Continue to avoid alcohol. -Hepatology follow-up TBD based on above. Likely will see him in 6 to 12 months with repeat labs andFibroScan at 1 year. 55 of this 60 minute visit was in onui-oz-upia discussion regarding disease, prognosis and treatment. This is exclusive of the time spent performing the Fibroscan procedure. Dallin Mcgovern PA-C Section of Gastroenterology [place] [address] Copy: BRAN Martinez documented in this encounter Procedure Notes Dallin Mcgovern PA - 11/25/2019 1:00 PM ESTAssociated Order(s): FIBROSCAN Procedure(s): FIBROSCAN Pre-Procedure Diagnose(s): NAFLD (nonalcoholic fatty liver disease) [facility] Liver Fibrosis Assessment Report Indication: Fatty liver, recent ultrasound suggestive of possible cirrhosis with nodular liver capsule Performed by: DREA Bello Procedure: Vibration Controlled Transient Elastography (VCTE) or Fibroscan [place] Protocol: Patient's identity, procedure and site were verified, confirmatory pause performed. Discussed procedure including risks and potential complications. Questions answered. Patient verbalizes understanding and wishes to proceed with Fibroscan assessment. Patient was placed in the supine position with right arm in maximum abduction to allow optimal exposure of right lateral abdomen. Patient was briefly assessed. Testing was performed in the mid-axillarylocation. 50Hz Shear Wave pulses were applied and the resulting Shear Wave and Propagation Speed wasdetected with a 3.5MHz ultrasonic signal, using the Fibroscan probe. Skin to liver capsule distance and liver parenchyma were accessed during the entire examination with the Fibroscan probe. Patient was instructed to breathe normally and abstain from sudden movements during the procedure. At least tenSheer Waves were produced; individual measurements of each Shear Wave were calculated. Patient tolerated the procedure well with no complications. Fibroscan Results: Median kPa: 6.3 Mean IQR: 8% (goal is <30 %) Number of valid measurements: 10 (10 required) Number of invalid measurements: 0 Predicted fibrosis stage: F0-F1 CAP (dB/m): 396 Estimated steatosis grade: 3/3 % hepatocytes affected: > 66% XL probe used Interpretation: Based on this Fibroscan result, history, clinical examination and review of laboratory and radiological data, this patient likely has stage 0-1 liver fibrosis and grade 3 steatosis affecting less than 66% of hepatocytes. documented in this encounter Plan of Treatment Upcoming Encounters Date Type Specialty Care Team Description 04/18/2022 Office Visit Gastroenterology Dallin Mcgovern PA [facility] [address] [place], [place] [address] (Wo rk) Scheduled Referrals Name Type Priority Associated Order Schedule Diagnoses Referral to Outpatient Referral Routine NAFLD (nonalcoholic O rdered: Endocrinology fatty liver 11/26/2019 disease) Obesity, unspecified classification, unspecified obesity type, unspecified whether serious comorbidity pres ent Type 2 diabetes mellitus with other specified complication, with long-term current use of insulin Hypertriglyceridemi a documented as of this encounter Procedures Procedure Name Priority Date/Time Associated Comments Diagnosis HC [facility] LIVER FIBROSIS Routine 11/25/2019 2:23 PM NAFLD (nonalc oholic Results for this PANEL; NEPHELOMETRY EST fatty liver procedur e are in disease) the results section. HEMOGRAM Routine 11/25/2019 2:23 PM NAFLD (nonalcoholic Re sults for this EST fatty liver procedure are i n disease) the results section. DIFFERENTIAL, Routine 11/25/2019 2:23 PM NAFLD (nonalcoholic R esults for this AUTOMATED EST fatty liver procedure are i n disease) the results section. HC IRON BINDING Routine 11/25/2019 2:23 PM NAFLD (nonalcoholic Results for this CAPACITY EST fatty liver procedure are i n disease) the results section. HC CBC,PLT & AUTO DIFF Routine 11/25/2019 2:23 PM NAFLD (nonal coholic EST fatty liver disease) HC FERRITIN, SERUM Routine 11/25/2019 2:23 PM NAFLD (nonalcoho lic Results for this EST fatty liver procedure are i n disease) the results section. COMPREHENSIVE Routine 11/25/2019 2:23 PM NAFLD (nonalcoholic R esults for this METABOLIC PANEL EST fatty liver procedure ar e in (NON-FASTING) disease) the results section. [id number] Routine 11/25/2019 1:00 PM NAFLD (nonalcoholic Re sults for this EST fatty liver procedure are i n disease) the results section. documented in this encounter Results (ABNORMAL) Differential, Automated (11/25/2019 2:23 PM EST) athologist Signature Neutrophils % 66.9 % [facility] Neutr Abs (ANC) 5.15 1.70 - [facility] 6.10 [facility] x10(3)/[facility] Lymphocytes % 23.3 % [facility] Lymphocytes Abs 1.8 0.9 - 3.2 [facility] x10(3)/[facility] LABORATORY Monocytes % 6.9 % [facility] Monocyte Abs 0.5 0.3 - 0.9 [facility] x10(3)/[facility] LABORAT[facility] Eosinophils % 1.0 % [facility] Eosinophils Abs 0.1 0.0 - 0.4 [facility] x10(3)/[facility] LABOR[facility] Basophils % 0.5 % [facility] Basophils Abs 0.0 0.0 - 0.1 [facility] x10(3)/[facility] LABORATORY Immature Gran % 1.40 % [facility] Comment: Immature granulocytes(IG's)percentage an d absolute count will include metamyelocytes, myelocytes, and promyelo cytes. Blood smears from CBCs yielding IG's will be scanned manually for concor dance. If this scan disagrees with the automated IG or if promyelocytes are not ed, a manual differential will be performed. Mai Gran Abs 0.11 (H) 0.00 - 0.04 x10(3)/[facility] LABORATORY Specimen Anatomical Collection Method Collection Time Receive d Time (Source) Location / / Volume Laterality Blood specimen 11/25/2019 2:23 PM 020 2:33 (specimen) EST PM EST Resulting Agency Comment Spec In Lab Dallin SHEPARD HEMATOLOGY ORDERABLES Performing Organization Address City/State/[place] [address] (ABNORMAL) Hemogram (11/25/2019 2:23 PM EST) Analysis Performed At Patho logist Time Signature WBC 7.7 4.0 - 9.5 [facility] x10(3)/[facility] LABORATORY RBC 5.92 (H) 4.58 - [facility]54 [facility] x10(6)/[facility] Hemoglobin 16.2 13.7 - [facility] 16.[facility] gm/dL [facility] Hematocrit 48.7 (H) 40.5 - [facility] 48.5 % [facility] MCV 82.3 (L) 82.9 - [facility] 93.1 [facility] LABORAT[facility] MCH 27.4 (L) 27.5 - [facility] 32.1 pg [facility] MCHC 33.3 32.0 - [facility] 35.7 gm/dL [facility] Platelets 311 145 - 357 [facility] x10(3)/[facility] LAB[facility]ORY RDWSD 39.7 36.0 - [facility] 45.0 [facility] LABORATORY RDWCV 13.2 11.4 - [facility] 13.8 % [facility] MPV 9.8 7.6 - 12.9 [facility] LABORATORY nRBC % Auto 0.0 % [facility] nRBC Abs Auto 0.000 0.000 - [facility] 0.000 [facility] x10(3)/[facility] LAB[facility] Specimen Anatomical Collection Method Collection Time Receive d Time (Source) Location / / Volume Laterality Blood specimen 11/25/2019 2:23 PM 020 2:33 (specimen) EST PM EST Resulting Agency Comment Spec In Lab Dallin SHEPARD HEMATOLOGY ORDERABLES Performing Organization Address City/State/ZIP Code Phon e Essence [place] [id number] (ABNORMAL) Liver Fibrosis Panel (11/25/2019 2:23 PM EST) Component Value Ref Test Analysis Performed At [facility] Method Time Signature Liver DEJUAN Fibrosis Test ? Result ?Flag ??Unit ?? RefValue MAURICE Panel [facility] FibroTest[facility] ??FibroTest Score ? 0.24 LABORATORY ??FibroTest Stage ? F0-F1 ??FibroTest Interpretation ? no fi brosis ?FibroTest estimates liver fibrosis ?FibroTest Score ?Stage ?Interpretation ?0.00-0.21 ?F0 ? no fibrosis ?0.21-0.27 ?F0-F1 ?no fibrosis ?0.27-0.31 ?F1 ? minimal fibrosis ?0.31-0.48 ?F1-F2 ?minimal fibrosis ?0.48-0.58 ?F2 ? moderate fibrosis ?0.58-0.72 ?F3 ? advanced fibrosis ?0.72-0.74 ?F3-F4 ?advanced fibrosis ?0.74-1.00 ?F4 ? severe fibrosis (C irrhosis) ??ActiTest Score ? 0.30 ??ActiTest Grade ? A1 ??ActiTest Interpretation ?mini mal activity ?ActiTest estimates necroinflammatory activity ?ActiTest Score ? Grade ?Interpretation ?0.00-0.17 ?A0 ? no activity ?0.17-0.29 ?A0-A1 ?no activity ?0.29-0.36 ?A1 ? minimal activity ?0.36-0.52 ?A1-A2 ?minimal activity ?0.52-0.60 ?A2 ? significant activi ty ?0.60-0.62 ?A2-A3 ?significant activit y ?0.62-1.00 ?A3 ? severe activity ??FibroTest-ActiTest Comment ? SEE CO MMENTS ?The reliability of results is dependent on compliance ?with the preanalytical and analytical conditions ?recommended by [employer]. The tests have to be ?deferred for: acute hemolysis, acute hepatitis, ?acute inflammation, extra hepatic cholestasis. The ?advice of a specialist should be sought for ?interpretation in chronic hemolysis and Gilbert's ?syndrome. The test interpretation is not validated ?in liver transplant patients. Isolated extreme values ?of one of the components should lead to caution in ?interpreting the results. In case of discordance ?between a biopsy result and a test, it is recommended ?to seek advice of a specialist. The causes of these ?discordances could be due to a flaw of the test or to ?a flaw in the biopsy: i.e. a liver biopsy has a 33% ?variability rate for one fibrosis stage. FibroTest is ?interpretable for chronic hepatitis B and C, alcoholic ?and non alcoholic steatosis. ActiTest is interpretable ?for chronic hepatitis B and C. ? ADDITIONAL INFORMATION ------ ?This test was developed and its performance characteri stics ?determined by [facility] in a manner consistent with ?CLIA requirements. This test has not been cleared or ?approved by the U.S. Food and Drug Administration. ??[employer] Serial Number ?[id number] ??Apolipoprotein A1, S ? 117 ?L ?mg/dL ??>=120 ??Lfdpg-7-Awlshvuijilta, S ? 177 ? mg/dL ??100 - 280 ??Haptoglobin, S ? 129 ? mg/dL ??30 - 200 ??Alanine Aminotransferase (ALT), S ?55 ?U/L ?7-55 ??Gamma Glutamyltransferase (GGT), S ? 34 ?U/L ?8 - 61 ??Bilirubin, Total, S ?0.5 ? mg/dL ??<=1.2 ?Test Performed by: ?[facility] ?[address] [place] [id number] ?Stake Driver: Matt Werner M.D. Ph.D.; CLIA# [id number] ?Test Performed by: ?[facility] [address] ?[address] [place] [address] ?Stake Driver: Matt Werner M.D. Ph.D.; CLIA# [id number] (A) Specimen Anatomical Collection Method Collection Time Receive d Time (Source) Location / / Volume Laterality Blood specimen 11/25/2019 2:23 PM 020 3:45 (specimen) EST PM EST Resulting Agency Comment Spec In Lab Marilyn Mosher MD CHEMISTRY ORDERABLES Performing Organization Address City/State/ZIP Code Phon e Number [address] Iron and TIBC (11/25/2019 2:23 PM EST) athologist Signature Iron 71 45 - 160 [facility]dL [facility] TIBC 361 250 - 450 [facility] Iron Saturation 20 20 - 50 % [facility] Specimen Anatomical Collection Method Collection Time Receive d Time (Source) Location / / Volume Laterality Blood specimen 11/25/2019 2:23 PM 020 2:33 (specimen) EST PM EST Resulting Agency Comment Spec In Lab Marilyn Mosher MD CHEMISTRY ORDERABLES Performing Organization Address City/[facility]/ZIP Code Phon e Number [address] Ferritin (11/25/2019 2:23 PM EST) athologist [facility] Ferritin 149 30 - 400 [facility] ng/mL [facility] Comment: Pediatric reference ranges not verified at [facility], interpret with caution. Reference ranges for females greater mehreen n 50 years of age approach values for men, i.e., 30-400 ng/mL. Specimen Anatomical Collection Method Collection Time Receive d Time (Source) Location / / Volume Laterality Blood specimen 11/25/2019 2:23 PM 020 2:33 (specimen) EST PM EST Resulting Agency Comment Spec In Lab Marilyn Mosher MD CHEMISTRY ORDERABLES Performing Organization Address City/[facility]/[place]IP [place] [address] (ABNORMAL) Comprehensive metabolic panel (non-fasting) (11/25/2019 2:23 PM EST) athologist [facility] Glucose Lvl 126 65 - 199 [facility] mg/dL [facility] Comment: Diabetes: >=200 mg/dL plus symp toms BUN 18 10 - 20 mg/dL [facility] Creatinine 0.92 0.80 - 1.50 mg/dL [facility] Sodium 141 135 - 145 mmol/L [facility] Potassium 4.1 3.5 - 5.0 mmol/L [facility] Comment: Please note: ??Patients with WBC >100,00 0 may have falsely elevated Potassium levels. ??For accurate Potassium quantif ication in these patients send serum separator tube (gold top) for subsequent determinations. ??Contact the Clinical Chemistry Laboratory if there are any qu estions. Chloride 102 98 - 107 mmol/L [facility] CO2 23 22 - 31 mmol/L [facility] Anion Gap 16 (H) 5 - 15 mmol/L [facility] Calcium 10.4 8.5 - 10.5 mg/dL [facility] Total Protein 7.9 6.1 - 8.0 gm/dL [facility] Albumin 5.1 3.2 - 5.2 gm/dL [facility] AST 31 0 - 39 unit/L [facility] ALT 50 0 - 55 unit/L [facility] Alk Phos 49 40 - 130 unit/L [facility] Total Bilirubin 0.5 0.2 - 1.3 mg/dL [facility] Estimated GFR 99 >=60 mL/min/1.73 m?? [facility] Comment: The eGFR was calculated using the CKD-EP I equation. As with all creatinine based estimates of kidney function, eGFR values calculated with the CKD-EPI equation are not accurate in patients wi th acute kidney failure, extremes of body mass or the acutely ill. http://[employer]/[facility] eGFR 114 >=60 mL/min/1.73 m?? [facility] Comment: The eGFR was calculated using the CKD-EP I equation. As with all creatinine based estimates of kidney function, eGFR values calculated with the CKD-EPI equation are not accurate in patients wi th acute kidney failure, extremes of body mass or the acutely ill. http://[employer]/[facility] Specimen Anatomical Collection Method Collection Time Receive d Time (Source) Location / / Volume Laterality Blood specimen 11/25/2019 2:23 PM 020 2:33 (specimen) EST PM EST Resulting Agency Comment Spec In Lab Marilyn Mosher MD CHEMISTRY ORDERABLES Performing Organization Address City/State/ZIP Code Phon e Number [place] [phone] [id number] (11/25/2019 1:00 PM EST) Narrative Dallin Mcgovern PA - 11/25/2019 1:00 PM EST Dallin Mcgovern PA ? 11/26/2019 ??1:44 PM [facility] Liver Fibrosis Asses sment Report Indication: ?? Fatty liver, recent ultra sound suggestive of possible cirrhosis with nodular liver ca psule Performed by: ??DREA Bello Procedure: Vibration Controlled Transien t Elastography (VCTE) or Fibroscan [place] Protocol: Patient's identity, procedure and site were verified, confirmatory pause performed. Discussed procedure including risks and potential complicati ons. Questions answered. Patient verbalizes understanding and wis hes to proceed with Fibroscan assessment. Patient was placed in the supine positio n with right arm in maximum abduction to allow optimal expos ure of right lateral abdomen. Patient was briefly assessed. T esting was performed in the mid-axillary location. 50Hz Shear Wa ve pulses were applied and the resulting Shear Wave and Propaga tion Speed was detected with a 3.5MHz ultrasonic signal, using t he Fibroscan probe. Skin to liver capsule distance and liver pare nchyma were accessed during the entire examination with the F ibroscan probe. Patient was instructed to breathe normally and a bstain from sudden movements during the procedure. At least ten Sheer Waves were produced; individual measurements of eac h Shear Wave were calculated. Patient tolerated the proced ure well with no complications. Fibroscan Results: Median kPa: 6.3 Mean IQR: 8% (goal is <30 %) Number of valid measurements: 10 (10 req uired) Number of invalid measurements: 0 Predicted fibrosis stage: F0-F1 CAP (dB/m): 396 Estimated steatosis grade: 3/3 % hepatocytes affected: > 66% XL probe used Interpretation: Based on this Fibroscan result, history, clinical examination and review of laboratory and radiological da ta, this patient likely has stage 0-1 liver fibrosis and grade 3 steatosis affecting less than 66% of hepatocytes. Marilyn Mosher MD PROCEDURE/MINOR SURGICAL ORD ERABLES documented in this encounter Visit Diagnoses Diagnosis NAFLD (nonalcoholic fatty liver disease) - Primary Other chronic nonalcoholic liver disease Obesity, unspecified classification, uns pecified obesity type, unspecified whether serious comorbidity present Type 2 diabetes mellitus with other spec ified complication, with long-term current use of insulin Hypertriglyceridemia Pure hyperglyceridemia documented in this encounter Care Teams Neon Electrician Relationship Specialty Start Date End Date Patria Strong APRN PCP - General Family Medicine 11/05/19 [address] [place] [address] documented as of this encounter
--- OUTSIDE RECORDS SUMMARY | 2022-03-20 17:35 | XMS_ITS | Encounter Summary ---
:1970 Author Organization [facility] Address [address] [place] [address] Care Team Providers Name Role Phone Inderjit Rodgers MD Primary Care Provider Patria Strong APRN Primary Care Provider [phone] Encounter Details Date Type Department Care Team Description 07/25/2019 Hospital Encounter [facility]- Silvia Unknown, Provider, [facility] 0 [facility] [phone] [place] [address] (Work) [phone] Social History Tobacco Use Types Packs/Day Years Used Date Never Assessed Sex Assigned at Date Recorded Not on file documented as of this encounter Plan of Treatment Not on filedocumented as of this encounter Visit Diagnoses Not on filedocumented in this encounter Care Teams Stenciling Machine Tender Relationship Specialty Start Date End Date Inderjit Rodgers MD PCP - General 08/03/15 07/27/19 [address] [place] [address] Patria Strong APRN PCP - General 07/28/19 [address] [place] [address] documented as of this encounter
--- OUTSIDE RECORDS SUMMARY | 2022-03-20 17:35 | XMS_ITS | Encounter Summary ---
:1970 Author Organization [facility] Address [facility] [place] [address] Care Team Providers Name Role Phone Elsie Inman OVEN BAKER Primary Care Provider [phone] Encounter Details Date Type Department Care Team Description 11/10/2019 Hospital Encounter [place] [facility] Elsie Inman, Fatty liver; [facility] [address] [place] [address] [place] [address] [phone] (Wo rk) Social History Tobacco Use Types Packs/Day Years Used Date Never Assessed Sex Assigned at Date Recorded Not on file documented as of this encounter Medications at Time of Discharge Medication Sig Dispensed Refills Start Date End Date atorvastatin (Lipitor) 40 TAKE ONE TABLET BY 0 mg Tablet MOUTH AT BEDTIME fluticasone propionate USE ONE SPRAY IN 0 019 (FLONASE) 50 EACH NOSTRIL TWO mcg/actuation [employer], TIMES A DAY Suspension gemfibroziL (Lopid) 600 TAKE ONE TABLET BY 0 09/24 mg Tablet MOUTH TWICE A DAY 30 MINUTES BEFORE BREAKFAST AND 30 MINUTES BEFORE DINNER glipiZIDE XL (Glucotrol TAKE TWO TABLETS BY 0 XL) 10 mg Tablet Extended MOUTH EVERY DAY Rel 24 hr lisinopriL TAKE ONE TABLET BY 0 09/18/2019 (Prinivil;Zestril) 10 mg MOUTH EVERY DAY Tablet BD Ultra-Fine Mini Pen USE WITH BYDUREON 0 2019 Needle 31 gauge x 3/16 ONCE WEEKLY Needle budesonide (RHINOCORT 0 10/06/2004 AQUA) 32 mcg/Actuation nasal spray desloratadine (CLARINEX) 0 10/06/2004 5 mg tablet Bydureon 2 mg/0.65 mL Pen INJECT 2MG UNDER THE 0 09/16/2019 12/30/2019 Injector SKIN ONCE A WEEK Lantus Solostar U-100 INJECT 25 UNITS AT 0 201909/29/2020 Insulin pen BEDTIME documented as of this encounter Plan of Treatment Upcoming Encounters Date Type Specialty Care Team Description 04/18/2022 Office Visit Gastroenterology Dallin Mcgovern PA [facility] [address] [place], [place] [address] (Wo rk) documented as of this encounter Procedures Procedure Name Priority Date/Time Associated Diagnosis Comme nts US ABDOMEN LIMITED Routine 11/10/2019 10:00 AM Fatty allie er Results for this EST Hepatomegaly procedure are i n the results section. documented in this encounter Results US Abdomen Limited (11/10/2019 10:00 AM EST) Anatomical Region Laterality Modality Abdomen Ultrasound Specimen (Source) Anatomical Collection Method Collection Time Re ceived Time Location / / Volume Laterality 11/10/2019 10:00 AM EST Impressions 11/10/2019 10:48 AM EST 1. Marked hepatomegaly. There is coarsened hepatic parenchyma w ith capsular nodularity consistent with cirrhosis. No focal hepatic lesions see n. 2. Diffusely increased echogenicity con sistent with hepatic steatosis. 3. No cholelithiasis. 4. RIGHT kidney is normal. No hydroneph rosis. I have personally reviewed the image(s) and the resident's interpretation and agree with the findings, Cherelle moreno MD at 11/10/2019 10:39 AM Thank you for letting us participate in the care of this patient. For questions regarding this report, please contact t jocelyn number below. Electronically signed by: Cherelle grimes MD, [facility] ([phone]), at 10:39 AM ?Cherelle Bullard, Staff Physician Electronically Signed Final Report ?? 10:47 am Narrative 11/10/2019 10:48 AM EST Abdominal ? (Signed Final 11/10/2019 10:47 am) PATIENT INFO: ID #: ? [id number] ?: ??[birth year] (49 yrs) Name: ? BENJAMIN CAROLINA ?Visit Date: 11/10/2019 10:00 am PERFORMED BY: Performed By: ? Leonardo Devlin RDMS Attending: ?Aleah KAT, Chata Joseph Resident: ? Smith KAT, Junior decker Referred By: ?ELSIE INMAN Location: ? [facility] SERVICE(S) PROVIDED: ??UABDLIM - Abdominal Limited Survey Si ngle ? [id number] ??Organ or Quadrant - [id number] INDICATIONS: ??FATTY LIVER; HEPATOMEGALY COMPARISON: No prior studies for comparison. ------ LIVER: ------ Right Lobe Length: ?? 22.9 ?? cm Echogenicity/Echotexture: ?? Coarse ech ogenic parenchyma ? with capsular nodularity Portal Veins: ?Hepatopetal Comment: ?No focal lesion seen. Yamilex arce hepatomegaly. GALLBLADDER: Cholelithiasis: ?No stones visua lized Wall Thickness: ?Normal wall thi ckness Focal Tenderness: ?Negative sonogra phic Gar's sign BILIARY TRACT: Intrahepatic Ducts: ?? Normal Extrahepatic Ducts: ?? Normal Common Duct Size: ? 4.0 ? mm --------- PANCREAS: --------- Head: ? Normal Tail: ? Poorly visua lized due to overlying bowel Body: ? Normal RIGHT KIDNEY: Size (cm) ?L: ??10.9 Cortical Thickness: ?Normal Cortical Echogenicity: ?? Normal Hydronephrosis: ?No sonogr aphic evidence ------ AORTA: ------ Measurements (cm): Proximal ? AP: ?? 2.4 Comment: ?Normal in caliber where v isualized. ---- IVC: ---- Normal in caliber where visualized. FLUID COLLECTIONS: No ascites in the imaged RUQ & RLQ. Procedure Note Cherelle Bullard MD - 11/10/2019Forma tting of this note might be different from the original. Abdominal (Signed Final 11/10/2019 10:4 7 am) PATIENT INFO: ID #: [id number] : [birth year] (49 y rs) Name: BENJAMIN CAROLINA Visit Date: 11/10 10:00 am PERFORMED BY: Performed By: Leonardo Devlin RDMS Attending: Cherelle Bullard MD Resident: Kenney Mtz MD Referred By: ELSIE INMAN Location: [facility] SERVICE(S) PROVIDED: UABDLIM - Abdominal Limited Survey [place] [id number] Organ or Quadrant - [id number] INDICATIONS: FATTY LIVER; HEPATOMEGALY COMPARISON: No prior studies for comparison. ------ LIVER: ------ Right Lobe Length: 22.9 cm Echogenicity/Echotexture: Coarse echoge joey parenchyma with capsular nodularity Portal Veins: Hepatopetal Comment: No focal lesion seen. Marked h epatomegaly. GALLBLADDER: Cholelithiasis: No stones visualized Wall Thickness: Normal wall thickness Focal Tenderness: Negative sonographic Gar's sign BILIARY TRACT: Intrahepatic Ducts: Normal Extrahepatic Ducts: Normal Common Duct Size: 4.0 mm --------- PANCREAS: --------- Head: Normal Tail: Poorly visualized due to overlyin g bowel Body: Normal RIGHT KIDNEY: Size (cm) L: 10.9 Cortical Thickness: Normal Cortical Echogenicity: Normal Hydronephrosis: No sonographic evidence ------ AORTA: ------ Measurements (cm): Proximal AP: 2.4 Comment: Normal in caliber where visual ized. ---- IVC: ---- Normal in caliber where visualized. FLUID COLLECTIONS: No ascites in the imaged RUQ & RLQ. IMPRESSION 1. Marked hepatomegaly. There is coarsened hepatic parenchyma w ith capsular nodularity consistent with cirrhosis. No focal hepatic lesions see n. 2. Diffusely increased echogenicity con sistent with hepatic steatosis. 3. No cholelithiasis. 4. RIGHT kidney is normal. No hydroneph rosis. I have personally reviewed the image(s) and the resident's interpretation and agree with the findings, Cherelle moreno MD at 11/10/2019 10:39 AM Thank you for letting us participate in the care of this patient. For questions regarding this report, please contact t he number below. Electronically signed by: Cherelle grimes MD, [facility] ([phone]), at 10:39 AM Cherelle Bullard, Staff Physician Electronically Signed Final Report 11/10 10:47 am Elsie Inman APRN IM US GEN ORDERABLES documented in this encounter Visit Diagnoses Diagnosis Fatty liver Other chronic nonalcoholic liver disease Hepatomegaly documented in this encounter Care Teams Events Associate Relationship Specialty Start Date End Date Elsie Inman APRN PCP - General Family Medicine 11/05/19 [address] [place] [address] documented as of this encounter
--- OUTSIDE RECORDS SUMMARY | 2022-03-20 17:35 | XMS_ITS | Encounter Summary ---
:1970 Author Organization [facility] Address [address] [place] [address] Care Team Providers Name Role Phone Inderjit Rodgers MD Primary Care Provider Encounter Details Date Type Department Care Team Description 11/13/2017 Hospital Encounter [facility]- Silvia Unknown, Provider, [facility] [address] [facility] [phone] [place] [address] (Work) [phone] Social History Tobacco Use Types Packs/Day Years Used Date Never Assessed Sex Assigned at Date Recorded Not on file documented as of this encounter Discharge Disposition Disposition Code Departure Means Destination Home or Self Assisted documented in this encounter Plan of Treatment Not on filedocumented as of this encounter Visit Diagnoses Not on filedocumented in this encounter Care Teams Customer Service Operator Relationship Specialty Start Date End Date Inderjit Rodgers MD PCP - General 08/03/15 07/27/19 [address] [place], [place] [id number] documented as of this encounter
--- OUTSIDE RECORDS SUMMARY | 2022-03-20 17:35 | XMS_ITS | Encounter Summary ---
:1970 [place] [address] Care Team Providers Name Role Phone Patria Strong APRN Primary Care Provider [phone] Reason for Referral Consultation (Routine) - Closed Specialty Diagnoses / Procedures Referred By Contact Refer red To Contact Endocrinology Diagnoses Type 2 diabetes mellitus with other specified complication, with long-term current use of insulin Baudilio Lopez, Urvashi Bonilla, FELICITA [facility] [address], [place] [address] Referral ID Status Reason Start Date Expiration Visits Visits Date Requested Authorized [id number] Closed Continuity of 12/30/2019 12/29/2020 1 1 Care Reason for Visit Consultation (Routine) - Closed Specialty Diagnoses / Procedures Referred By Contact Refer red To Contact Endocrinology Diagnoses NAFLD (nonalcoholic fatty liver disease) Obesity, unspecified classification, unspecified obesity type, unspecified whether serious comorbidity present Dallin Mcgovern Crawford, Andrew R, Type 2 diabetes mellitus wit h other specified complication, with long-term current use of insulin Hypertriglyceridemia NAFLD (nonalcoholic fatty liver disease) - Obesity, unspecified classification, unspecified obesity type, PA unspecified whether serious comorbidity present Type 2 diabetes mellitus with other specified complication, with long-term current use of insulin Hypertriglyceridemia [facility] [place] [address] [place] [address] [place] [address] Fax: Referral ID Status Reason Start Date Expiration Date Visits V isits Requested Authorized [id number] Closed Consult, 11/26/2019 11/25/2020 1 1 Test & Treat Encounter Details Date Type Department Care Team Description 12/30/2019 TH Visit Endocrinology at [facility] Baudilio Tian Type 2 diabetes (TeleHealth) [facility] John mellitus with other [facility] [place] [address] [place], with [phone] [place] [id number] use of insulin Social History Tobacco Use Types Packs/Day Years Used Date Never Smoker Smokeless Tobacco: Never Used Sex Assigned at Date Recorded Not on file documented as of this encounter Progress Notes Baudilio Lopez MD - 12/30/2019 1:00 PM EDT TELEPHONE NEW PATIENT VISIT Patient verbally consents to this telephone visit and understands that this visit may be billed, similar to a clinic office visit REASON FOR VISIT: Michel Carolina Jr. presents today for evaluation and management of Diabetes and obesity A consultation was requested by Dallin SHEPARD He was referred from hepatology for assistance with management of obesity and associated metabolic complication of DM2. DIABETES HISTORY: Type of Diabetes: II Duration of Diabetes: ~2017 FAMILY HISTORY OF DIABETES: maternal GM and mother Diabetes complications Retinopathy/diabetic eye disease: No problems. Sees eye doctor regularly Neuropathy: none Nephropathy: none Macrovascular disease: none Notable past medical history: Dyslipidemia/hypertriglyceridemia Sleep apnea Hypertension Type 2 diabetes Sahu Notably he did have an episode of pancreatitis several years ago of unclear etiology requiring hospitalization for a few days. He is unsure if he was on Januvia at that time but was not yet on a GLP-1 receptor agonist. He thinks he may have had a subsequent milder episode of pancreatitis that did not require hospital stay. Past surgical history: Appendectomy Current DM meds bydureon 2mg weekly--but stopped 3 weeks ago lantus 25 units Glipizide 20mg daily januvia 50mg Metformin 2000mg melanie Diet/Lifestyle: Breakfast: yogurt shake Lunch: protein and veg. Trying to cut out bread Dinner: chicken plus veg, salad Snacks between meals--walnuts, almonds Beverages: milk with supper, water. Recently eliminated soda. 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 metFORMIN (GLUCOPHAGE) 1,000 mg Tablet, Take 1,000 mg by mouth 2 times daily (with meals)., Disp: , Rfl: ??? atorvastatin (Lipitor) 40 mg Tablet, TAKE ONE TABLET BY MOUTH AT BEDTIME, Disp: , Rfl: ??? Bydureon 2 mg/0.65 mL Pen Injector, INJECT 2MG UNDER THE SKIN ONCE A WEEK, Disp: , Rfl: ??? fluticasone propionate (FLONASE) 50 mcg/actuation [place], Suspension, USE ONE SPRAY IN EACH NOSTRIL [...] 5 mg tablet, , Disp: , Rfl: Allergies Allergen Reactions ??? Cis Free Text Allergy polllen. CIS - itchy eyes, sneeze REVIEW OF SYSTEMS: Normal appetite No numbness/tingling/burning in hands or feet No blurry vision All other systems negative. Radiology Studies: Laboratory Data: No results for input(s): HA1C in the last 7068 hours. Recent Labs 11/25/19 1423 CREATININE 0.92 Assessment / Plan: 1) Diabetes Mellitus Type 2 with improving glycemic control. -His blood sugar control has improved substantially over the last 6 weeks with significant weight loss (15 pounds) -His fasting blood sugars are too low, so I recommended that he reduce his dose of Lantus to 20 units nightly. He can increase or decrease by 1 unit as needed to maintain a fasting blood sugar goal between 90 and 140. We reviewed the rule of 15 to help him correct low blood sugars if he encounters anygoing forward. -Continue metformin and glipizide -I recommended that he plan to discontinue the by bydureon for the time being. We discussed that there is a theoretical risk of pancreatitis with the use of Januvia which is especially relevant for himgiven his past episode of this which had an unknown etiology. Patient does acknowledge the risk and feels comfortable continuing -We also discussed switching Januvia to Victoza given the proven benefit of the latter medication toreduce the inflammation and scarring associated with Sahu. However the mechanism behind the improvement in Sahu is not particularly clear: Whether there was a liver specific mechanism by which Victoza ask or whether it was just due to the weight loss effects. I suggested that because of his past episode of pancreatitis, and because his blood sugar control has improved significantly with weight loss that we hold off on the switch to Victoza for now but consider this in the future. -I referred the patient to see our intelligence officer basic Urvashi Alfrao to discuss optimal dietary practices forpatients with diabetes. Because he has a history of hypertriglyceridemia, he would benefit from an extended discussion about the importance of low glycemic index diet to help control both his triglycerides and his blood sugars. -I recommend that he monitor his blood sugar more regularly later in the day, such that he is checking either a bedtime or a predinner blood sugar every day to assess how well the current dose of glipizide is working. 2) class I obesity and fatty liver disease: We discussed that weight loss of as little as 5 to 7% over 12 months can confer significant benefit in terms of reduction in the severity of his metabolic complications. I recommended that he increase his physical activity to be active for 30 to 60 minutes at least every day. -Consider switch to GLP-1 receptor agonist in the future as described above. A note will be sent to the referring provider Return to clinic 6 months with labs For patients with Type II Diabetes, if we are starting/changing medication(s) we will provide 1-2 followup visits and thereafter provide a plan for the patient's diabetes to be managed by the primary care provider Medical decision making: medication management, monitoring of organ function and hemoglobin A1c Orders Placed This Encounter Procedures ??? Hemoglobin A1c ??? LDL Cholesterol, Direct ??? HDL/Cholesterol Profile ??? U Albumin/Cre Ratio ??? Creatinine ??? Referral to Nutrition Services It was a pleasure to be involved in the care of Michel Carolina . If you have any questions aboutthe management and treatment plan as outlined above, or if I can be of further assistance, please donot hesitate to contact me. Sincerely, Baudilio Lopez MD [employer] master Endocrinology Section [facility] documented in this encounter Plan of Treatment Upcoming Encounters Date Type Specialty Care Team Description 04/18/2022 Office Visit Gastroenterology Dallin Mcgovern PA [facility] [address] [place], [place] [address] (Wo rk) Scheduled Referrals Name Type Priority Associated Diagnoses Order S chedule Referral to Outpatient Referral Routine Type 2 diabetes Order ed: Nutrition Services mellitus with other specified complication, with long-term current use of insulin documented as of this encounter Results U Albumin/Cre Ratio (07/01/2020 7:42 AM EDT) athologist Signature Alb/Cr Ratio, 24 0 - 29 [facility] Random mcg/mg Cr [facility] Comment: Reference Ranges: <30 mcg/mg: Normal 30-300 mcg/mg: Moderately increased albu minuria.* >300 mcg/mg: Severely increased albuminu renée. * ACEI or ARB recommended if diabetic; s uggested if BP>130/80 without diabetes ACEI or ARB strongly recommended if di abetic; recommended if BP>130/80 without diabetes Two of three specimens collected within a 3 to 6 month period should be abnormal before considering a patient to have albuminuria. Transient causes: exercise, fever, infection, CHF, marked hyperglycemia or hypertension. Persistent albuminuria indicates CKD and is an independent risk factor for ASCVD. ADA Standards of Medical Care in Diabete s-2016; KDIGO: Kidney International Supplements (2012) 2, 357? 362 U Albumin Conc, Random 21.6 mg/L [facility] U Creatinine 91 mg/dL [facility] Specimen Anatomical Collection Method Collection Time Receive d Time (Source) Location / / Volume Laterality Urine specimen 07/01/2020 7:42 AM 020 7:49 (specimen) EDT AM EDT Resulting Agency Comment Spec In Lab Baudilio Lopez MD URINE ORDERABLES Performing Organization Address City/State/ZIP [place] [address] Creatinine (07/01/2020 7:41 AM EDT) athologist Signature Creatinine 0.97 0.80 - DEJUAN MAURICE 1.50 mg/dL [facility] Estimated GFR 92 >=60 [facility] mL/min/1.7 [facility] 3 ?? [facility] Comment: The eGFR was calculated using the CKD-EP I equation. As with all creatinine based estimates of kidney function, eGFR values calculated with the CKD-EPI equation are not accurate in patients wi th acute kidney failure, extremes of body mass or the acutely ill. http://Itiva/[facility] EDMONDnkf eGFR 107 >=60 mL/min/1.73 m?? [facility] Comment: The eGFR was calculated using the CKD-EP I equation. As with all creatinine based estimates of kidney function, eGFR values calculated with the CKD-EPI equation are not accurate in patients wi th acute kidney failure, extremes of body mass or the acutely ill. http://Itiva/DHMCnkf Specimen Anatomical Collection Method Collection Time Receive d Time (Source) Location / / Volume Laterality Blood specimen 07/01/2020 7:41 AM 020 7:48 (specimen) EDT AM EDT Resulting Agency Comment Spec In Lab Baudilio Lopez MD CHEMISTRY ORDERABLES Performing Organization Address City/State/ZIP [place] [address] HDL/Cholesterol Profile (07/01/2020 7:41 AM EDT) P athologist Signature Chol, Total 100 mg/dL [facility] Comment: Lower Risk: <200 mg/dL Average Risk: 200-239 mg/dL Higher Risk: >qb=125 mg/dL HDL 31 mg/dL [facility] Comment: Males: ?? Higher Risk: <40 mg/dL Females: ?? HIgher Risk: <50 mg/dL Chol/HDL Ratio 3.2 ratio [facility] Chol/HDL Interpretation See Note [facility] Comment: Lipid management should be guided by a p atient? s ASCVD risk, goals and preferences. ACC/AHA Guidelines recommend high intens ity statin if clinical ASCVD or LDL greater than or equal to 190 mg/dL. http://Itiva/NDD-PJT-Oczpqwabt Measure LDL if Total Cholesterol minus H DL Cholesterol is greater than 220 mg/dL. Adults aged 40-75 with LDL 70-189 mg/dL should have their 10 year ASCVD risk estimated with the ACC/AHA ASCVD risk es timator http://tools.acc.org/MFCAJ-Sidq-Crvvyuvy r/ Statin should be discussed if risk great er than or equal to 7.5% in non-diabetics. With diabetes, moderate i ntensity statin is recommended if risk less than 7.5%, high intensity if risk g reater than or equal to 7.5%. Annual lipid monitoring on statins is no t necessary. Lifestyle modification is a critical com ponent of ASCVD risk reduction. Specimen Anatomical Collection Method Collection Time Receive d Time (Source) Location / / Volume Laterality Blood specimen 07/01/2020 7:41 AM 7:48 (specimen) EDT AM EDT Resulting Agency Comment Spec In Lab Baudilio Lopez MD CHEMISTRY ORDERABLES Performing Organization Address City/[facility]/ZIP [facility] Phon e Number [address] LDL Cholesterol, Direct (07/01/2020 7:41 AM EDT) P athologist Signature LDL Chol 40 mg/dL [facility] Comment: Lowest Risk: <100 mg/dL Lower Risk: 100-129 mg/dL Borderline High Risk: 130-159 mg/dL High Risk: 160-189 mg/dL Very High Risk: >qb=097 mg/dL Specimen Anatomical Collection Method Collection Time Receive d Time (Source) Location / / Volume Laterality Blood specimen 07/01/2020 7:41 AM 020 7:48 (specimen) EDT AM EDT Resulting Agency Comment Spec In Lab Baudilio Lopez MD CHEMISTRY ORDERABLES Performing Organization Address City/[facility] [place] [address] (ABNORMAL) Hemoglobin A1c (07/01/2020 7:41 AM EDT) Patholo gist Method Time Signature Hemoglobin A1C 10.0 (H) 4.3 - 5.6 [facility] Comment: Reference Range: 4.3 - 5.6% 5.7 - 6.4% - Increased Risk of Developin g Diabetes Mellitus >= 6.5% - Consistent with diagnosis of D iabetes Mellitus In the absence of hyperglycemia (i.e. pl asma glucose > 200 mg/dL) or classic symptoms of hyperglycemia a repeat measu rement of HbA1c should be performed on a separate sample to confirm the diagnos is. Diagnosis and Classification of Diabetes Mellitus, Diabetes Care 2013; 36: Suppl. 1, S67-56 Est Avg Gluc 241 mg/dL DEJUAN RICHARDS [facility] Comment: eAG equivalents for HbA1c percentages: HbA1c(%) ?eAG(mg/dL) 6.0 ?126 6.5 ?140 7.0 ?154 7.5 ?169 8.0 ?183 8.5 ?197 9.0 ?212 9.5 ?226 10.0 ? 240 Limitations: The eAG calculation has not been validated on women, individuals below 18 years old and above 70 years old, and individuals with hemoglobinopathies. Additional resources are available on [facility] ADA website. Cem ARCHIBALD, Genia J, Leo R, et al. ??Tr anslating the A1C assay into estimated average glucose values. ??Diabetes Care 2008:31(8):5567-6492. Specimen Anatomical Collection Method Collection Time Receive d Time (Source) Location / / Volume Laterality Blood specimen 07/01/2020 7:41 AM 020 7:48 (specimen) EDT AM EDT Resulting Agency Comment Spec In Lab Baudilio Lopez MD CHEMISTRY ORDERABLES Performing Organization Address City/State/ZIP [place] [address] documented in this encounter Visit Diagnoses Diagnosis Type 2 diabetes mellitus with other spec ified complication, with long-term current use of insulin documented in this encounter Care Teams Co Founder And Ceo Relationship Specialty Start Date End Date Patria Strong APRN PCP - General Family Medicine 11/05/19 [address] [place] [address] documented as of this encounter
--- OUTSIDE RECORDS SUMMARY | 2022-03-20 17:35 | XMS_ITS | Encounter Summary ---
:1970 [place] [address] Care Team Providers Name Role Phone Patria Strong APRN Primary Care Provider [phone] Encounter Details Date Type Department Care Team Description 03/29/2020 Telephone Endocrinology at [facility] [place] [address] Social History Tobacco Use Types Packs/Day Years Used Date Never Smoker Smokeless Tobacco: Never Used Sex Assigned at Date Recorded Not on file documented as of this encounter Miscellaneous Notes Telephone Encounter - Demian Gilman - 03/29/2020 11:02 AM EDT LMOAM X1 to schedule 6 month f/u (June) with Dr. Lopez, labs prior. documented in this encounter Plan of Treatment Upcoming Encounters Date Type Specialty Care Team Description 04/18/2022 Office Visit Gastroenterology Dallin Mcgovern, PA [facility] [address] [place] [address] (Wo rk) documented as of this encounter Visit Diagnoses Not on filedocumented in this encounter Care Teams Returns Supervisor Relationship Specialty Start Date End Date Patria Strong APRN PCP - General Family Medicine 11/05/19 [address] [place] [address] documented as of this encounter
--- OUTSIDE RECORDS SUMMARY | 2022-03-20 17:35 | XMS_ITS | Encounter Summary ---
:1970 Author Organization [facility] [place] [address] Care Team Providers Name Role Phone Patria Strong APRN Primary Care Provider [phone] Encounter Details Date Type Department Care Team Description 09/29/2020 TH Visit Endocrinology at [facility] Baudilio Tian Type 2 diabetes (TeleHealth) [facility] MD John mellitus with [facility], [place] [address] Center long-term current [phone] [place], [place] use of insulin [address] Social History Tobacco Use Types Packs/Day Years Used Date Never Smoker Smokeless Tobacco: Never Used Sex Assigned at Date Recorded Not on file documented as of this encounter Progress Notes Baudilio Lopez MD - 09/29/2020 10:15 AM EST Mr. Michel Carolina Jr. is an 50 y.o. male who presents for ongoing care of Diabetes type II TELEPHONE VISIT Patient verbally consents to this telehealth visit and understands that this visit may be billed, similar to a clinic office visit Due to technical problems this was switched to a telephone visit. Interval history: Generally the patient has been feeling well and has been Very busy with the winter weather. He worksfor the [employer] and spends much of his time in his truck when the weather gets cold. This is unfortunately reduced his level of physical activity somewhat. Since his last visit with me, he did meet with our plate sensitizer Urvashi and tells me that he has been trying to make some changes in terms of a healthier diet. He has been trying to reduce his portion sizes and snack less frequently at bedtime. As far as his blood sugar control, he tells me that unfortunately it is about the same as when he last saw me in June when his A1c was 10%. He did start taking Actos 15 mg daily but does not believe it has had any positive impact on his blood sugar profile. He has not had any additional edema with the Actos. He did increase his Lantus dose slightly from 25 to 30 units but he still feels that his fasting blood sugars are high, typically slightly over 200 inthe morning. Busier with the winter weather Blood sugar log: Fasting morning sugar 220-230s Evening or bedtime: Between 140 and 150 Later in day 140-150 Notable medical comorbidities: Dyslipidemia/hypertriglyceridemia Sleep apnea Hypertension Type 2 diabetes Sahu Pancreatitis (severe, required hospitalization) Current DM meds: lantus 30 units daily Glipizide XL 20mg daily januvia 50 mg Metformin 2000mg daily Actos 15 milligrams daily ?? Weight: 209 lb Meals: Breakfast: shake Daytime snack: crackers, grapes or berries Lunch: sandwich Dinner: largest meal Used to have ice cream at bedtime but is cut this out Drinking water and consuming less milk Less milk Trying to reduce portion sizes Eye doctor: due to see later this month. No evidence of DM eye disease Current Outpatient Medications: ??? Lantus Solostar U-100 Insulin pen, Inject 36 units subcutaneous once a day, Disp: 45 mL, Rfl: 3 ??? metFORMIN (GLUCOPHAGE) 1,000 mg Tablet, Take 1,000 mg by mouth 2 times daily (with meals)., Disp: , Rfl: ??? atorvastatin (Lipitor) 40 mg Tablet, TAKE ONE TABLET BY MOUTH AT BEDTIME, Disp: , Rfl: ??? gemfibroziL (Lopid) 600 mg Tablet, TAKE ONE TABLET BY MOUTH TWICE A DAY 30 MINUTES BEFORE BREAKFAST AND 30 MINUTES BEFORE DINNER, Disp: , Rfl: ??? glipiZIDE XL (Glucotrol XL) 10 mg Tablet Extended Rel 24 hr, TAKE TWO TABLETS BY MOUTH EVERY DAY, Disp: , Rfl: ??? lisinopriL (Prinivil;Zestril) 10 [...] Route) route. One-touch, Disp: , Rfl: ??? fluticasone propionate (FLONASE) 50 mcg/actuation [place], Suspension, USE ONE SPRAY IN EACH NOSTRIL TWO TIMES A DAY, Disp: , Rfl: ??? budesonide (RHINOCORT AQUA) [...] Hypertriglyceridemia ??? Obesity ??? History of pancreatitis Radiology Studies: Laboratory Data: Assessment / Plan: 1) Diabetes Mellitus Type II, uncontrolled with hyperglycemia He is clear that he has an increased need for basal insulin, so increase the Lantus to 36 units daily and increase by 2 units as necessary to maintain a goal fasting blood sugar between 190 and 140. I asked him to notify me if he is up to 50 units. Continue metformin and glipizide. Okay to continue Januvia 50 mg daily but do not increase the dose further given his history of pancreatitis in the past. Because he has not had any additional blood sugar control benefit with Actos and because it has an interaction with gemfibrozil, stop Actos now. He had an episode of pancreatitis requiring hospitalization at [facility] about 5 years ago but the cause of the pancreatitis is not exactly clear. He was on Januvia at the time but is not clear whether thatwas part of the problem or there is another issue going on such as hypertriglyceridemia. I will asked my nurse to obtain the records from that hospitalization. If Januvia was a major culprit, we will need to consider stopping that medication. If there was another clear cause, we could again consider switching him from Januvia to a GLP-1 receptor agonist. I encouraged him to try to remain as physically active as he can for weight control as well as glycemic control. He will get fasting labs drawn locally in the near future. Please do not hesitate to contact me with questions Return to clinic in 3 months by telehealth Time statement: I spent 21 minutes on the phone discussing and counseling with the patient about theissues above. I spent an additional 12 minutes on chart review and documentation and coordination ofcare for total of 33 minutes spent on this visit. Orders Placed This Encounter Procedures ??? Lipid Panel (Reflex Direct LDL) ??? Hemoglobin A1c ??? Glucose, fasting ??? C-peptide Baudilio Lopez MD Manager Mechanicalsafety and security manager Endocrinology Section [facility] Baudilio Lopez MD - 09/29/2020 10:15 AM EST Received 2015 [facility] discharge for pancreatitis. Patient was briefly admitted. Max lipase 1169. Triglycerides at that time 173. No signs/symptoms of gallstones or ETOH excess. No definitive cause given but patient was on januvia and gemfibrozil at that time documented in this encounter Plan of Treatment Upcoming Encounters Date Type Specialty Care Team Description 04/18/2022 Office Visit Gastroenterology Dallin Mcgovern PA [facility] [address] [place], [place] [address] (Wo rk) documented as of this encounter Visit Diagnoses Diagnosis Type 2 diabetes mellitus with hyperglyce joaquín, with long-term current use of insulin documented in this encounter Care Teams Academic Associate Relationship Specialty Start Date End Date Patria Strong APRN PCP - General Family Medicine 2/12/20 [address] [place] [address] documented as of this encounter
--- OUTSIDE RECORDS SUMMARY | 2022-03-20 17:35 | XMS_ITS | Encounter Summary ---
:1970 Author Organization [place] [address] Care Team Providers Name Role Phone Patria Strong APRN Primary Care Provider [phone] Encounter Details Date Type Department Care Team Description 10/01/2020 Telephone Endocrinology at [facility] [place] [address] Social History Tobacco Use Types Packs/Day Years Used Date Never Smoker Smokeless Tobacco: Never Used Sex Assigned at Date Recorded Not on file documented as of this encounter Miscellaneous Notes Telephone Encounter - Jesus Benson RN - 10/01/2020 12:39 PM EST Electronically routed request for records. Telephone Encounter - Jesus Benson RN - 10/01/2020 12:37 PM EST ----- Message from Baudilio Lopez MD sent at 09/29/2020 11:16 AM EST ----- Regarding: low priority record request Jesus He was hospitalized at [facility] ~ 2014 for pancreatitis and I am trying to figure out more of the details to see why this happened. Please see if we can obtain a discharge summary Thanks! documented in this encounter Plan of Treatment Upcoming Encounters Date Type Specialty Care Team Description 04/18/2022 Office Visit Gastroenterology [place], Dallin M, PA [facility] [address] [place], [place] [address] (Wo rk) documented as of this encounter Visit Diagnoses Not on filedocumented in this encounter Care Teams Senior Premium Auditor Relationship Specialty Start Date End Date Patria Strong APRN PCP - General Family Medicine 11/05/19 [address] [place] [address] documented as of this encounter
--- OUTSIDE RECORDS SUMMARY | 2022-03-20 17:35 | XMS_ITS | Encounter Summary ---
:1970 Author Organization [facility] [place] [address] Care Team Providers Name Role Phone Patria Strong APRN Primary Care Provider [phone] Reason for Referral Consultation (Routine) - Authorized Specialty Diagnoses / Procedures Referred By Contact Refer red To Contact Gastroenterology Diagnoses Hepatic cirrhosis, unspecified hepatic cirrhosis type, unspecified whether ascites present Fatty liver Hepatomegaly hepatic cirrhosis/fatty liver/ hepatomegaly Patria Strong, [facility] Gastr o 4l RN CRITICAL CARE [facility] [address] [place] [address] [place] [address] Phone: Fax: Referral ID Status Reason Start Expiration Visits Visits Date Date Requested Authorized [id number] Authorized Consult, 02/21/2022 02/21/2023 6 6 Test & Treat PCP Updated and/or Approved Encounter Details Date Type Department Care Team Description 02/21/2022 Transcribe Orders eDH Incoming Patria Strong Hepati c cirrhosis, unspecified hepatic cirrhosis type, unspecified whether ascites present; Referrals BRAN Gilliam Fatty liver; [phone] [address] [place] [address] Social History Tobacco Use Types Packs/Day Years Used Date Never Smoker Smokeless Tobacco: Never Used Sex Assigned at Date Recorded Not on file documented as of this encounter Plan of Treatment Upcoming Encounters Date Type Specialty Care Team Description 04/18/2022 Office Visit Gastroenterology Dallin Mcgovern PA [facility] [address] [place], [place] [address] (Wo rk) Scheduled Referrals Name Type Priority Associated Order Schedule Diagnoses Referral to Outpatient Routine Hepatic cirrhosis, Ordered: Gastroenterology Referral unspecified hepatic 01/24 cirrhosis type, unspecified whether ascites present Fatty liver Hepatomegaly documented as of this encounter Visit Diagnoses Diagnosis Hepatic cirrhosis, unspecified hepatic c irrhosis type, unspecified whether ascites present Fatty liver Other chronic nonalcoholic liver disease Hepatomegaly documented in this encounter Care Teams Process Development Technician Relationship Specialty Start Date End Date Patria Strong APRN PCP - General Family Medicine 11/05/19 [address] [place] [address] documented as of this encounter
--- OUTSIDE RECORDS SUMMARY | 2022-03-20 17:35 | XMS_ITS | Encounter Summary ---
:1970 Author Organization [facility] [place] [address] Care Team Providers Name Role Phone Patria Strong APRN Primary Care Provider [phone] Reason for Visit Consultation (Routine) - Closed Specialty Diagnoses / Procedures Referred By Contact Refer red To Contact Endocrinology Diagnoses Type 2 diabetes mellitus with hyperglycemia, with long-term current use of insulin Baudilio Lopez MD Kline, Erika L, RD [facility] [place] [address] [place] [address] Referral ID Status Reason Start Date Expiration Visits Visits Date Requested Authorized [id number] Closed Continuity of 07/01/2020 07/01/2021 1 1 Care Encounter Details Date Type Department Care Team Description 07/09/2020 TH Visit Endocrinology at [facility] Urvashi Hodges, Type 2 diabetes (TeleHealth) [facility] [address] mellitus with Drive [facility] [place] [address] long-term current [phone] [place], [place] use of insulin [id number] Social History Tobacco Use Types Packs/Day Years Used Date Never Smoker Smokeless Tobacco: Never Used Sex Assigned at Date Recorded Not on file documented as of this encounter Patient Instructions Patient InstructionsUrvashi Alfaro RD - 07/09/2020 11:00 AM EDT Nice meeting you! Nutrition Goals: 1. Reduce intake of added sugars by limiting or omiting soda and sports drinks and stop eating ice cream after dinner every night. Diet or zero version would be better, but you should still limit theintake of these drinks or avoid drinking them all together. 2. Increase fiber intake along with water intake. Try eating non-starchy veggie with meals and switch to whole grain bread such as Sunny's, Samuel, etc. Check ingredients for added sugars (like high fructose corn syrup, etc.) and whole wheat flour. 3. Try intake tracking scottie on your phone such as My SynapDx Pal. If you want a different approach (less counting calories, grams of carbs, etc.), I like your idea about trying Noom, which takes a psychological approach to weight loss (costs $). 4. Call to schedule a follow up appointment 1-2 months from now. [phone]. It would be great to follow up with you. documented in this encounter Progress Notes Urvashi Alfaro RD - 07/09/2020 11:00 AM EDT [facility] Adult Endocrinology Diabetes Education & Nutrition Services: Encounter for Medical Nutrition Therapy My D-H Video Visit due to COVID-19 for: Michel Carolina Jr. Michel Carolina Jr. verbally consents to this Telehealth Visit and understands the visit could be billed similar to a clinic office visit. I provided care via video-audio. Patient's location and were confirmed prior to the start of the visit. Subjective: Visit started late due to technical difficulties. Michel has tried to cut white sugars and white foods out of his diet but his blood sugars haven't improved. Exercise: not regularly, fairly physical at work Social history: works for the [employer] [place] On his feet all day. Active in the summer. Fall and winter not as physical in the garage or plowing. Don't eat and sleep same during due plowing. Access to medications and DM testing supplies: no issues Diet Recall Food Allergies: none Food Intolerances: none GI: hx of pancreatitis Carb counting?: looked at labels and tried to stay away from as many carbs as he could. Didn't seem to change a whole lot. 4-5 months weight stayed the same glucose levels stayed the same. Food Access? No Recent intake history: Meals per day: 2 usually 1 Breakfast Works at 5 AM and has to be there by 6AM Skips so has a snack Lunch 11: 30 AM and 1:00 PM depends Nothing is ever same Laurel from [employer] --> melt, ham, turkey, and bell Chips or snacky carb Different every day 1 Glass of milk Dinner Tries to cut out potato Meat and vegetable (beef, chicken, pork, etc.) corn or salad 1 Glass of milk Snacks Sausage McMuffin No PM Snack Usually ice cream at night Fluids Sometimes a soda or gatorade (Regular sweetened with sugar) Doesn't drink alcohol Other OBJECTIVE Prior Medical History: Past Medical History: Diagnosis Date ??? Fatty liver disease, nonalcoholic ??? Hypertension ??? Hypertriglyceridemia ??? Sleep apnea ??? Type 2 diabetes mellitus Anthropometrics: Vitals Office Visit from 07/01/2020 in Endocrinology at [facility] Weight 97.5 kg (215 lb) Height 170.2 cm (5' 7) BSA (Calculated - sq m) 2.15 sq meters BMI (Calculated) 33.67 Temp 36.4 ??C (97.6 ??F) Temp src Temporal Heart Rate 87 BP 125/80 SpO2 98 % Maintaining #215 lbs Lantus: tries not miss dose SMBG: Glucometer: isn't sure on brand got through the State [place] Glucose log: checks once a day (fasting) and now checking morning and before bed. 200s, last night 214 and this morning 241. Medications: Medications 07/01/20 1612 Medication Sig Taking? pioglitazone (Actos) 15 mg Tablet Take 1 tablet by mouth daily for 28 days. metFORMIN (GLUCOPHAGE) 1,000 mg Tablet Take 1,000 mg by mouth 2 times daily (with meals). atorvastatin (Lipitor) 40 mg Tablet TAKE ONE TABLET BY MOUTH AT BEDTIME fluticasone propionate (FLONASE) 50 mcg/actuation [place], Suspension USE ONE SPRAY IN EACH NOSTRIL TWO TIMES A DAY gemfibroziL (Lopid) 600 mg Tablet TAKE ONE TABLET BY MOUTH TWICE A DAY 30 MINUTES BEFORE BREAKFAST AND 30 MINUTES BEFORE DINNER glipiZIDE XL (Glucotrol XL) 10 mg Tablet Extended Rel 24 hr TAKE TWO TABLETS BY MOUTH EVERY DAY Lantus Solostar U-100 Insulin pen INJECT 25 UNITS AT BEDTIME lisinopriL (Prinivil;Zestril) 10 mg Tablet TAKE ONE TABLET BY MOUTH EVERY DAY BD Ultra-Fine Mini Pen Needle 31 gauge x 3/16 Needle USE WITH JOO ONCE WEEKLY aspirin EC 81 mg Tablet, Delayed Release (E.C.) Take 81 mg by mouth daily. SITagliptin (Januvia) 100 mg Tablet Take 100 mg by mouth daily. Diabetic Supplies, Miscellan. Misc by Misc.(Non-Drug; Combo Route) route. One-touch budesonide (RHINOCORT AQUA) 32 mcg/Actuation nasal spray desloratadine (CLARINEX) 5 mg tablet Labs: Last 3 Hemoglobin A1Cs Lab Results Component Value Date HA1C 10.0 (H) 07/01/2020 ASSESSMENT: Michel Carolina Wilfrido is a 50 y.o. y/o male with Type 2 diabetes, also NAFLD. Visit started late due to technical difficulties, but we were able to spend entire hour together. More improvement needed to improve quality of carbohydrates in diet he is consuming, such as increasing intake of high fiber carbohydrates. Should decrease/cut out soda to help improve blood sugars and help manage NAFLD. Pleasant and motivated. INTERVENTION/EDUCATION PROVIDED: topics discussed with this patient are in BOLD. Those not in BOLD were not discussed with this patient. -Nutritional adequacy and healthy eating -Food sources of carbohydrate (types: sugars, starches, fiber) -Mechanism/Importance of fiber on glycemic control: -Role of carbohydrates in glycemic control, fat and protein on glycemic control -Carbohydrate counting (basic or advanced) -Nutrition Facts/food label reading reviewed -Portion control/measuring portions: plate method -Insulin to carbohydrate ratios and correction factors: instruction provided on math or with excel spread sheet -Carbohydrate budget for meal and/or snacks: -Breakfast -Lunch: -Dinner -Snacks (#/day): -Timing of meals and snacks -Blood or Sensor glucose targets: -Fastin-130 -Premeal: 80-130 -2 hrs postmeal: <180 -Calorie intake guidelines: -Protein intake guidelines: -Fat intake guidelines: -sources of mono and polyunsaturated fats -Sodium intake guidelines: < 2000 mg/day -Alcohol guidelines reviewed: Women 1 standard drink/day, Men 2 standard drinks/day. 1 standard drink = 12 oz reg beer, 5 oz wine, or 1.5 oz distilled spirits -Effect of alcohol on glucose levels --> he avoids alcohol intake -Guidelines for eating out -Food/medication interaction reviewed: -Metformin w/vitamin B12 -Other: -Importance and effect of exercise for: -Glycemic control -Weight maintenance or weight loss OUTCOMES MONITORING AND EVALUATION: Receptive to interventions/information provided (patient perspective): yes Receptive to interventions/information provided (provider perspective): yes -Barriers to making change: non identified GOALS OF MEDICAL NUTRITION THERAPY 1. Achieve optimal blood glucose control by balancing food intake with physical activity, insulin therapy, and medications. 2. Achieve optimal blood pressure and lipid levels. 3. Achieve and maintain optimal body weight for for height. 4. Reduce and prevent acute and long term care administrator complications. 5. Maintain eating to meet nutritional, personal, and cultural needs PLAN PT SPECIFIC RECOMMENDATIONS: Nice meeting you! Nutrition Goals: 1. Reduce intake of added sugars by limiting or omiting soda and sports drinks and stop eating ice cream after dinner every night. Diet or zero version would be better, but you should still limit theintake of these drinks or avoid drinking them all together. 2. Increase fiber intake along with water intake. Try eating non-starchy veggie with meals and switch to whole grain bread such as Sunny's, Samuel, etc. Check ingredients for added sugars (like high fructose corn syrup, etc.) and whole wheat flour. 3. Try intake tracking scottie on your phone such as [employer]ush[employer]. If you want a different approach (less counting calories, grams of carbs, etc.), I like your idea about trying Noom, which takes a psychological approach to weight loss (costs $). 4. Call to schedule a follow up appointment 1-2 months from now. EDGARD: 60 minutes FUV: Pt will call to schedule Urvashi Alfaro MS, RDN, LD documented in this encounter Plan of Treatment Upcoming Encounters Date Type Specialty Care Team Description 04/18/2022 Office Visit Gastroenterology Dallin Mcgovern PA [facility] [address] [place], [place] [address] (Wo rk) Scheduled Referrals Name Type Priority Associated Diagnoses Order S chedule Referral to Outpatient Referral Routine Type 2 diabetes Order ed: Nutrition Services mellitus with 10/08/20 20 hyperglycemia, with long-term current use of insulin documented as of this encounter Visit Diagnoses Diagnosis Type 2 diabetes mellitus with hyperglyce joaquín, with long-term current use of insulin documented in this encounter Care Teams Foot Worker Relationship Specialty Start Date End Date Patria Strong APRN PCP - General Family Medicine 11/05/19 [address] [place] [address] documented as of this encounter
--- OUTSIDE RECORDS SUMMARY | 2022-03-20 17:35 | XMS_ITS | Encounter Summary ---
:1970 Author Organization [facility] [place] [address] Care Team Providers Name Role Phone Patria Strong APRN Primary Care Provider [phone] Encounter Details Date Type Department Care Team Description 07/01/2020 Laboratory Appointment Lab [facility] Type 2 diabetes [facility] mellitus with other [facility] specified Drive complication, with [place], [place] long-term curre nt use [id number] of insulin [phone] Social History Tobacco Use Types Packs/Day Years Used Date Never Smoker Smokeless Tobacco: Never Used Sex Assigned at Date Recorded Not on file documented as of this encounter Plan of Treatment Upcoming Encounters Date Type Specialty Care Team Description 04/18/2022 Office Visit Gastroenterology Dallin Mcgovern PA [facility] [place] [address] (Wo rk) documented as of this encounter Procedures Procedure Name Priority Date/Time Associated Comments Diagnosis HC CREATININE - NON Routine 07/01/2020 7:42 AM Type 2 diabetes Results for this BLOOD EDT mellitus with other procedur e are in specified the results complication, with section. long-term current use of insulin HC VENIPUNCTURE Routine 07/01/2020 7:41 AM Type 2 diabetes Res ults for this EDT mellitus with other procedur e are in specified the results complication, with section. long-term current use of insulin HC LDL CHOLESTEROL, Routine 07/01/2020 7:41 AM Type 2 diabetes Results for this DIRECT EDT mellitus with other procedur e are in specified the results complication, with section. long-term current use of insulin HC CHOLESTEROL Routine 07/01/2020 7:41 AM Type 2 diabetes Resu lts for this EDT mellitus with other procedur e are in specified the results complication, with section. long-term current use of insulin HC HEMOGLOBIN A1C Routine 07/01/2020 7:41 AM Type 2 diabetes R esults for this EDT mellitus with other procedur e are in specified the results complication, with section. long-term current use of insulin documented in this encounter Results U Albumin/Cre Ratio (07/01/2020 7:42 AM EDT) P athologist Signature Alb/Cr Ratio, 24 0 - 29 [facility] Random mcg/mg Cr [facility] Comment: Reference Ranges: <30 mcg/mg: Normal [...] 362 U Albumin Conc, Random 21.6 mg/L [facility] U Creatinine 91 mg/dL [facility] Specimen Anatomical Collection Method Collection Time Receive d Time (Source) Location / / Volume Laterality Urine specimen 07/01/2020 7:42 AM 020 7:49 (specimen) EDT AM EDT Resulting Agency Comment Spec In Lab Baudilio Lopez MD URINE ORDERABLES Performing Organization Address City/State/[place] [address] (ABNORMAL) Hemoglobin A1c (07/01/2020 7:41 AM EDT) Patholo gist Method Time Signature Hemoglobin A1C 10.0 (H) 4.3 - 5.6 [facility] Comment: Reference Range: 4.3 [...] Mellitus, Diabetes Care 2013; 36: Suppl. 1, S67-14 Est Avg Gluc 241 mg/dL [facility] Comment: eAG equivalents for HbA1c percentages: HbA1c(%) ?eAG(mg/dL) 6.0 ?126 6.5 ?140 7.0 ?154 7.5 ?169 8.0 ?183 8.5 ?197 9.0 ?212 9.5 ?226 10.0 ? 240 Limitations: The eAG calculation has not been validated on women, individuals below 18 years old and above 70 years old, and individuals with hemoglobinopathies. Additional resources are available on [facility] ADA website. Cem ARCHIBALD, Genia J, Leo R, et al. ??Tr anslating the A1C assay into estimated average glucose values. ??Diabetes Care 2008:31(8):8184-8914. Specimen Anatomical Collection Method Collection Time Receive d Time (Source) Location / / Volume Laterality Blood specimen 07/01/2020 7:41 AM 020 7:48 (specimen) EDT AM EDT Resulting Agency Comment Spec In Lab Baudilio Lopez MD CHEMISTRY ORDERABLES Performing Organization Address City/State/ZIP Code Phon e Number [address] LDL Cholesterol, Direct (07/01/2020 7:41 AM EDT) athologist Signature LDL Chol 40 mg/dL [facility] Comment: Lowest Risk: <100 mg/dL Lower Risk: 100-129 mg/dL Borderline High Risk: 130-159 mg/dL High Risk: 160-189 mg/dL Very High Risk: >cd=279 mg/dL Specimen Anatomical Collection Method Collection Time Receive d Time (Source) Location / / Volume Laterality Blood specimen 07/01/2020 7:41 AM 020 7:48 (specimen) EDT AM EDT Resulting Agency Comment Spec In Lab Baudilio Lopez MD CHEMISTRY ORDERABLES Performing Organization Address City/State/ZIP Code Phon e Number [address] HDL/Cholesterol Profile (07/01/2020 7:41 AM EDT) athologist Signature Chol, Total 100 mg/dL [facility] Comment: Lower Risk: <200 mg/dL Average Risk: 200-239 mg/dL Higher Risk: >un=618 mg/dL HDL 31 mg/dL [facility] Comment: Males: ?? Higher Risk: <40 mg/dL Females: ?? HIgher Risk: <50 mg/dL Chol/HDL Ratio 3.[address] [facility] Chol/HDL Interpretation See Note [facility] Comment: Lipid management should be guided by a p atient? s ASCVD risk, goals and preferences. ACC/AHA Guidelines recommend high intens ity statin if clinical ASCVD or LDL greater than or equal to 190 mg/dL. http://tinyurl.com/YHT-XVB-Yajfziapn Measure LDL if Total Cholesterol minus H DL Cholesterol is greater than 220 mg/dL. Adults aged 40-75 with LDL 70-189 mg/dL should have their 10 year ASCVD risk estimated with the ACC/AHA ASCVD risk es timator http://tools.acc.org/QIRSE-Mhsf-Uaalbneu r/ Statin should be discussed if risk [...] MD CHEMISTRY ORDERABLES Performing Organization Address City/[facility]/[place]IP [place] [address] Creatinine (07/01/2020 7:41 AM EDT) athologist Signature Creatinine 0.97 0.80 - DEJUAN JACKCOCK 1.50 mg/dL [facility] Estimated GFR 92 >=60 [facility] mL/min/1.7 [facility] 3 ?? HOSPITAL LABOR[facility]ORY Comment: The eGFR was calculated using the CKD-EP I equation. As with all creatinine based estimates of kidney function, eGFR values calculated with the CKD-EPI equation are not accurate in patients wi th acute kidney failure, extremes of body mass or the acutely ill. [email or web address]/[facility] MARIETTAnkf eGFR 107 >=60 mL/min/1.73 m?? [facility] Comment: The eGFR was calculated using the CKD-EP I equation. As with all creatinine based estimates of kidney function, eGFR values calculated with the CKD-EPI equation are not accurate in patients wi th acute kidney failure, extremes of body mass or the acutely ill. http://[email or web address]/[facility] Specimen Anatomical Collection Method Collection Time Receive d Time (Source) Location / / Volume Laterality Blood specimen 07/01/2020 7:41 AM 020 7:48 (specimen) EDT AM EDT Resulting Agency Comment Spec In Lab Baudilio Lopez MD CHEMISTRY ORDERABLES Performing Organization Address City/[facility]/ZIP [place] [address] documented in this encounter Visit Diagnoses Diagnosis Type 2 diabetes mellitus with other spec ified complication, with long-term current use of insulin documented in this encounter Care Teams Police Dispatcher Relationship Specialty Start Date End Date Patria Strong, EDGE GLUER PCP - General Family Medicine 11/05/19 [address] [place] [address] documented as of this encounter
--- OUTSIDE RECORDS SUMMARY | 2022-03-20 17:35 | XMS_ITS | Encounter Summary ---
:1970 Author Organization [place] [address] Care Team Providers Name Role Phone Patria Strong APRN Primary Care Provider [phone] Encounter Details Date Type Department Care Team Description 12/01/2019 Orders Only Gastroenterology at [facility] Dallin Mcgovern NAFLD (nonalcoholic fatty li wilda disease); [facility] DREA Weiss Type 2 diabetes mellitus with other spec ified complication, unspecified [place] [address] [facility] [phone] [place] [address] Social History Tobacco Use Types Packs/Day Years Used Date Never Smoker Smokeless Tobacco: Never Used Sex Assigned at Date Recorded Not on file documented as of this encounter Plan of Treatment Upcoming Encounters Date Type Specialty Care Team Description 04/18/2022 Office Visit Gastroenterology Dallin Mcgovern PA [facility] [address] [place] [address] (Wo rk) documented as of this encounter Visit Diagnoses Diagnosis NAFLD (nonalcoholic fatty liver disease) Other chronic nonalcoholic liver disease Type 2 diabetes mellitus with other spec ified complication, unspecified whether detention insulin use documented in this encounter Care Teams Structural Test Engineer Relationship Specialty Start Date End Date Patria Strong APRN PCP - General Family Medicine 11/05/19 [address] [place] [address] documented as of this encounter
== END 2022-03-20 17:31 | disposition home or self-care (01) ==
LOC: NCHCN 17:30
PROVIDERS: PCP Nurse Practitioner Family; Visit Provider Nurse Practitioner Family
DX: E83.42 Hypomagnesemia (principal); K76.0 Fatty (change of) liver, not elsewhere classified; E11.9 Type 2 diabetes mellitus without complications; E78.1 Pure hyperglyceridemia; R16.0 Hepatomegaly, not elsewhere classified; M10.9 Gout, unspecified
CPT/HCPCS: 80053; 80061; 82607; 83735; 84550; 85025

== ENCOUNTER 2023-04-23 15:58 | Outpatient (REF) | payer BC, SELFPAY ==
[2023-04-23 19:15] LABS: Abs Immature Grans 0.03 10^3/uL (0.0-0.06); Absolute Basophil Count 0.02 10^3/uL (0.0-0.2); Absolute Eosinophil Count 0.06 10^3/uL (0.0-0.7); Absolute Lymphocyte Count 1.39 10^3/uL (1.2-3.4); Absolute Monocyte Count 0.34 10^3/uL (0.1-0.8); Absolute Neutrophil Count 3.87 10^3/uL (1.2-6.7); Basophils % 0.4; Eosinophils % 1.1; HGB 14.9 g/dL (13.5-17.5); Immature Grans % 0.5; Lymphocytes % 24.3; MCH 28.2 pg (27.0-33.0); MCHC 33.1 % (32.0-36.0); MCV 85 fL (80-95); MPV 10.5 fL (8.0-11.0); Neutrophils % 67.7; Platelet Count 284 10^3/uL (130-400); RBC 5.29 10^6/uL (4.36-5.78); RDW 13.4 % (11.8-14.1); RDW-SD 41.7 fL; WBC 5.71 10^3/uL (4.4-10.8)
[2023-04-23 20:13] LABS: ALT 34 U/L (16-63); AST 17 U/L (15-37); Albumin 4.1 g/dL (3.4-5.0); Alkaline Phosphatase 64 U/L (46-116); Anion Gap 10.5 mmol/L (3-11); BUN 18 mg/dL (7-18); Bilirubin, Total 0.3 mg/dL (0.2-1.0); CO2 24.5 mmol/L (21.0-32.0); CREATININE 0.8 mg/dL (0.70-1.30); Calcium 9.1 mg/dL (8.5-10.1); Calculated LDL 31 mg/dL (<100); Chloride 107 mmol/L (98-107); Cholesterol 79 mg/dL (<200); Estimated GFR 107.15 (mL/min/1.73m2); Glucose 120 mg/dL (74-106); HDL Cholesterol 35 mg/dL (40-60); Magnesium 1.5 mg/dL (1.8-2.4); Potassium 4.6 mmol/L (3.5-5.1); Sodium 142 mmol/L (136-145); Total Protein 6.5 g/dL (6.4-8.2); Triglyceride 69 mg/dL (<150); Vitamin B12 347 pg/mL (193-986)
[2023-04-23 20:22] LABS: Uric Acid 3.5 mg/dL (3.5-7.2)
== END 2023-04-23 15:59 | disposition home or self-care (01) ==
LOC: NCHCN 15:58
PROVIDERS: PCP Nurse Practitioner Family; Visit Provider Nurse Practitioner Family
DX: E83.42 Hypomagnesemia (principal); E78.1 Pure hyperglyceridemia; E11.9 Type 2 diabetes mellitus without complications; M10.9 Gout, unspecified; R16.0 Hepatomegaly, not elsewhere classified; E66.9 Obesity, unspecified; Z79.899 Other long term (current) drug therapy
CPT/HCPCS: 80053; 80061; 82607; 83735; 84550; 85025

== ENCOUNTER 2024-02-25 10:37 | Day surgery (SDC) | payer BC, SELFPAY ==
[2024-02-25 11:31] VITALS: BP 138/92; PULSE 81; RESP 20; TEMP 36.2; O2SAT 98
[2024-02-25] MEDS: Lactated Ringers 1,000 ML 80 ML IV (11:56)
--- NOTE | 2024-02-25 12:28 | W.COLOREPORT ---
Date of service: 02/25/24 Time of Service: 12:39 Colonoscopy Report Procedure Description: PROCEDURES PERFORMED: 1. Colonoscopy PREOPERATIVE DIAGNOSIS: Surveillance colonoscopy POSTOPERATIVE DIAGNOSIS: Colon polyps SURGEON: Colton Mcgarry MD INDICATION for procedure: The patient is a 54-year-old man who has a history of tubulovillous adenoma(and some other polyps) being resected on prior colonoscopy 5 years ago. He has no symptoms or complaints. An isolated grandparent had colon cancer. FINDINGS: No new polyps. Terminal ileum was normal. No obvious diverticular disease. No significant hemorrhoid disease. SURVEILLANCE interval/FOLLOW-UP: I would recommend repeating the colonoscopy in another 5 years because of the family history and the findings of tubulovillous histology on prior polypectomy. SPECIMENS: yes EBL: Minimal COMPLICATIONS: None QUALITY of prep: Adequate Procedure in detail: The patient gave written consent and was in agreement with the indications, the potential risks as well as the benefits of the procedure. They were taken to the endoscopy suite and laid in the left lateral decubitus position. A timeout was performed and anesthesia was administered which was tolerated well. I started the procedure. Digital rectal and visual examination was performed and grossly within normal limits. A well-lubricated flexible colonoscope was then introduced and passed without any notable difficulty all the way to the cecum identified by the ileocecal valve and the appendiceal orifice. The terminal ileum was intubated and looked normal. The scope was then slowly withdrawn with the above-noted findings. The patient tolerated the procedure well and was taken to the PACU in hemodynamically stable condition.
--- NOTE | 2024-02-25 12:30 | W.ANESPRE ---
General Info Date of Service Date Performed: 02/25/24 Height: 5 ft 6 in Weight: 87 kg Body Mass Index (BMI): 30.9 Surgical Procedure: Operation Date: 02/25/24 13:05 Proposed Procedure Side Surgeon p Tavo Mcgarry MD Meds Allergies and Home Medications Allergies Allergy/AdvReac Type Severity Reaction Status Date / Time environmental Allergy Mild Other (See Uncoded 02/25/24 11:25 Comment) Home Medication Medication Instructions Recorded aspirin 81 mg chewable tablet 81 mg PO DAILY 08/15/15 atorvastatin 40 mg tablet 40 mg PO DAILY 10/17/17 omeprazole 20 mg capsule,delayed 20 mg PO DAILY #30 caps 07/25/19 release allopurinol 100 mg tablet 100 mg PO DAILY 12/27/23 azelastine 137 mcg (0.1 %) nasal 1 spray intranasal BID 12/27/23 spray aerosol dulaglutide 4.5 mg/0.5 mL 4.5 mg subcut QWEEK 12/27/23 subcutaneous pen injector (Trulicity) fluticasone propionate 50 1 spray intranasal BID 12/27/23 mcg/actuation nasal spray,suspension glipizide 10 mg tablet, extended 10 mg PO DAILY 12/27/23 release 24 hr lisinopril 10 mg tablet 5 mg PO DAILY 12/27/23 magnesium chloride 64 mg 64 mg PO BID 12/27/23 (magnesium chloride) tablet,delayed release (Mag 64) metformin 1,000 mg tablet,extended 2,000 mg PO DAILY 12/27/23 release 24hr (osmotic) bisacodyl 5 mg tablet,delayed 5 mg PO ONCE #4 tabs 02/21/24 release (Dulcolax (bisacodyl)) polyethylene glycol 3350 17 17 g PO ONCE #238 grams 02/21/24 gram/dose oral powder Current Visit Medications: Current Medications Generic Name Dose Route Start Last Admin Trade Name Freq PRN Reason Stop Dose Admin Ringer's Solution 1,000 mls @ 80 mls/hr 02/25/24 06:00 02/25/24 11:56 IV 02/25/24 23:59 80 mls/hr INFUSION DAVID Administration IV Miscellaneous Supplies 1 each 02/25/24 06:00 Iv Access IV 02/25/24 23:59 DIRECTED DAVID Sodium Chloride 0 ml 02/25/24 06:00 Normal Saline Flush 10 Ml Syr IV 02/25/24 23:59 PRN PRN Sodium Chloride 0 ml 02/25/24 06:00 Normal Saline 10 Ml Vial IJ 02/25/24 23:59 DIRECTED PRN Sterile Water 0 ml 02/25/24 06:00 Water,Injection,Sterile 10 Ml Vial IJ 02/25/24 23:59 DIRECTED PRN PFSH Active Problems Active Problems: Problem Status Onset Code Nonalcoholic steatohepatitis K75.81 Dysphagia R13.10 Hepatomegaly R16.0 Colon polyps K63.5 Esophagitis K20.9 Gastric ulcer K25.9 Gastritis K29.70 Medical History Medical History Fx shaft rad w/ ulna-open History of digestive disorder Acute pancreatitis Obesity Constipation Allergic rhinitis Hypertriglyceridemia Gout Diabetes type 2 Sleep apnea Medical History Comments:: pt. reports grandmother has issues waking up Surgical History Surgical History S/P ORIF (open reduction internal fixation) fracture R ORIF S/P colonoscopy 07/25/19 tubes in ears Vasectomy Repair of inguinal hernia EGD - MAC (11/13/17) Appendectomy Tobacco Smoking/Tobacco Use Status: Never Alcohol Alcohol Intake: current Alcohol intake frequency: holidays/special occasions only Substance Use Substance use: Never Substance use type: does not use Details: alcohol: unknown Vital Signs and Lab Results Vital Signs Most Recent Vital Signs in EMR: Most Recent Vital Signs Temp Pulse Resp BP Pulse Ox 36.2 C L 81 20 138/92 H 98 02/25/24 11:31 02/25/24 11:31 02/25/24 11:31 02/25/24 11:31 02/25/24 11:31 Lab Results Blood Type / Crossmatch: No Data to Display Complete Blood Count: No Data to Display Complete Metabolic Panel: No Data to Display Liver Function Panel: No Data to Display Coagulation Panel: No Data to Display Cardiac Panel: No Data to Display Arterial Blood Gas: No Data to Display Venous Blood Gas: No Data to Display Pancreas Panel: No Data to Display Thyroid Panel: No Data to Display Infectious Disease: No Data to Display Blood Cultures: No Data to Display Toxicology Panel: No Data to Display Anesthesia Assessment and Plan Anesthesia History Personal History: No History of Anesthesia Complications Family History: No Family History of Anesthesia Complications Exercise Tolerance Exercise Tolerance: Other Pertinent Negatives Pertinent Negatives: No Symptoms of GERD, No Major Cardiovascular Symptoms or Complaints, No Major Pulmonary Symptoms or Complaints and No History of CVA/TIA Cardiac & Pulmonary Exam Cardiac Exam: Normal S1/S2 Heart Sounds Pulmonary Exam: Clear Bilateral Breath Sounds Cardiac and Pulmonary Comment:: JOSIE CPAP Implantable Cardiac Device Does patient have a Pacemaker or an ICD?: No Airway Exam Known Difficult Airway: No Mallampati Class: 3 Mouth Opening: Normal (> 3cm) Thyromental Distance: Greater than 3 cm Neck Range of Motion: Full ROM Neck Circumference: Thick Teeth Condition: Normal Dentition ASA Classification ASA Score: ASA 2 Emergency Case?: No NPO Status NPO Status: NPO Clears >2 hours, Solids >8 hours Anesthesia Plan Resuscitation Status: Full Code Anesthesia Technique: General Anesthesia Airway Planned: Natural Airway Monitors Used: Standard Monitors
--- NOTE | 2024-02-25 12:40 | W.PM.DSUDISC ---
Date of service: 02/25/24 Time of Service: 12:40 Discharge Plan Disposition Patient Disposition: Home Condition: Good Discharge Details Attending Provider: Roland Mcgarry Primary Care Provider: Patria Strong Home Meds and New Rx's Prescriptions: No Action bisacodyl [Dulcolax (bisacodyl)] 5 mg tablet,delayed release (DR/EC) 5 mg PO ONCE Qty: 4 0RF Rx Instructions: Take per colonoscopy instructions provided by ordering providers office polyethylene glycol 3350 17 gram/dose powder 17 g PO ONCE Qty: 238 0RF Rx Instructions: Take per colonoscopy instructions provided by ordering providers office allopurinol 100 mg tablet 100 mg PO DAILY lisinopril 10 mg tablet 5 mg PO DAILY magnesium chloride [Mag 64] 64 mg tablet,delayed release (DR/EC) 64 mg PO BID azelastine 137 mcg (0.1 %) aerosol,spray 1 spray intranasal BID Rx Instructions: administer into each nostril fluticasone propionate 50 mcg/actuation spray,suspension 1 spray intranasal BID Rx Instructions: administer into each nostril metformin 1,000 mg tablet extended release 24hr 2,000 mg PO DAILY glipizide 10 mg tablet extended release 24hr 10 mg PO DAILY Trulicity 4.5 mg/0.5 mL pen injector 4.5 mg subcut QWEEK aspirin 81 MG tablet,chewable 81 mg PO DAILY omeprazole 20 mg capsule,delayed release(DR/EC) 20 mg PO DAILY Qty: 30 2RF atorvastatin 40 MG tablet 40 mg PO DAILY Discharge Instructions Additional Instructions: FINDINGS: No new polyps were found. Everything else inside of you looks healthy and normal. No inflammatory changes or anything else that is concerning. I do recommend you do another colonoscopy in 5 years because of the type of polyp that was removed last time and considering your family history. Activity:: Activity as Tolerated Diet:: As Tolerated
[2024-02-25 12:44] VITALS: BMI 30.9
[2024-02-25 13:12] VITALS: BP 118/86; PULSE 86; RESP 16; TEMP 36.4; O2SAT 96
--- NOTE | 2024-02-25 13:20 | W.ANESPOSTOP ---
Postoperative Evaluation Date, Time and Location Date Performed: 02/25/24 Time Performed: 13:20 Patient Location: Day Surgery Unit Vital Signs Most Recent Imported Vital Signs: Most Recent Vital Signs Temp Pulse Resp BP Pulse Ox 36.4 C L 86 16 118/86 96 02/25/24 13:12 02/25/24 13:12 02/25/24 13:12 02/25/24 13:12 02/25/24 13:12 Pain Score Most Recent Pain Score: Most Recent Pain Score Pain Level 0 02/25/24 13:12 Assessment Mental Status: Awake (Alert & Oriented to Patient Baseline) Airway and Respiratory Function: Patent airway with normal (patient baseline) respiratory exam Cardiovascular Function: Hemodynamically Stable Hydration Status: Adequately Hydrated Nausea & Vomiting: No Nausea or Vomiting Pain: Pt. Denies Any Pain Peripheral Nerve Block: Patient did not receive a nerve block
[2024-02-25 13:50] VITALS: BP 119/88; PULSE 89; RESP 16; TEMP 36.4; O2SAT 98
== END 2024-02-25 14:00 | disposition home or self-care (01) ==
PROVIDERS: PCP Nurse Practitioner Family; Visit Provider Student in an Organized Health Care Education/Training Program
PROC: 0DJD8ZZ Inspection of Lower Intestinal Tract, Via Natural or Artificial Opening Endoscopic (ICD-10-PCS; CPT 45378; principal; 2024-02-25 13:00)
DX: Z12.11 Encounter for screening for malignant neoplasm of colon (principal); Z86.010 Personal history of colon polyps
CPT/HCPCS: 45378; 00123; J2001; J2704

== ENCOUNTER 2024-04-09 11:47 | Outpatient (REF) | payer BC, SELFPAY ==
[2024-04-09 15:22] LABS: Abs Immature Grans 0.06 10^3/uL (0.0-0.06); Absolute Basophil Count 0.03 10^3/uL (0.0-0.2); Absolute Eosinophil Count 0.07 10^3/uL (0.0-0.7); Absolute Monocyte Count 0.35 10^3/uL (0.1-0.8); Absolute Neutrophil Count 3.44 10^3/uL (1.2-6.7); Basophils % 0.6 %; Eosinophils % 1.3 %; HCT 45.3 % (40.0-50.0); HGB 15.3 g/dL (13.5-17.5); Immature Grans % 1.1 %; Lymphocytes % 24.8 %; MCH 28.7 pg (27.0-33.0); MCHC 33.8 % (32.0-36.0); MCV 85 fL (80-95); MPV 9.9 fL (8.0-11.0); Monocytes % 6.7 %; Neutrophils % 65.5 %; Platelet Count 226 10^3/uL (130-400); RBC 5.34 10^6/uL (4.36-5.78); RDW 13.2 % (11.8-14.1); RDW-SD 40.6 fL; WBC 5.25 10^3/uL (4.4-10.8)
[2024-04-09 15:54] LABS: ALT 76 U/L (16-63); AST 53 U/L (15-37); Albumin 4.1 g/dL (3.4-5.0); Alkaline Phosphatase 68 U/L (46-116); Anion Gap 8.6 mmol/L (3-11); BUN 16 mg/dL (7-18); Bilirubin, Total 0.63 mg/dL (0.2-1.0); CO2 26.4 mmol/L (21.0-32.0); CREATININE 0.8 mg/dL (0.70-1.30); Calcium 9.2 mg/dL (8.5-10.1); Chloride 106 mmol/L (98-107); Estimated GFR 106.48 (mL/min/1.73m2); Glucose 167 mg/dL (74-106); Magnesium 1.6 mg/dL (1.8-2.4); Potassium 4.4 mmol/L (3.5-5.1); Sodium 141 mmol/L (136-145); Total Protein 6.9 g/dL (6.4-8.2); Uric Acid 6.1 mg/dL (3.5-7.2)
[2024-04-09 16:43] LABS: Calculated LDL 18 mg/dL (<100); Cholesterol 116 mg/dL (<200); HDL Cholesterol 42 mg/dL (40-60); Triglyceride 281 mg/dL (<150); Vitamin B12 934 pg/mL (193-986)
== END 2024-04-09 11:48 | disposition home or self-care (01) ==
LOC: NCHCN 11:47
PROVIDERS: PCP Nurse Practitioner Family; Visit Provider Nurse Practitioner Family
DX: Z00.00 Encounter for general adult medical examination without abnormal findings (principal)
CPT/HCPCS: 80053; 80061; 82607; 83735; 84550; 85025

== ENCOUNTER 2025-01-06 15:30 | Outpatient (REF) | payer BC, SELFPAY ==
[2025-01-07 07:49] LABS: Magnesium 1.8 mg/dL (1.8-2.4)
[2025-01-07 07:58] LABS: Hemoglobin A1C 7.1 % (<5.7)
== END 2025-01-06 15:31 | disposition home or self-care (01) ==
LOC: NCHCN 15:30
PROVIDERS: PCP Nurse Practitioner Family; Visit Provider Nurse Practitioner Family
DX: E83.42 Hypomagnesemia (principal); E11.9 Type 2 diabetes mellitus without complications
CPT/HCPCS: 83036; 83735

== ENCOUNTER 2025-04-15 12:00 | Outpatient (REF) | payer BC, SELFPAY ==
[2025-04-15 15:00] LABS: Abs Immature Grans 0.07 10^3/uL (0.0-0.06); HCT 46.8 % (40.0-50.0); HGB 15.9 g/dL (13.5-17.5); Immature Grans % 1.3 %; MCH 28.3 pg (27.0-33.0); MCHC 34.0 % (32.0-36.0); MCV 83 fL (80-95); MPV 10.3 fL (8.0-11.0); Platelet Count 226 10^3/uL (130-400); RBC 5.62 10^6/uL (4.36-5.78); RDW 12.8 % (11.8-14.1); RDW-SD 38.5 fL; WBC 5.32 10^3/uL (4.4-10.8)
[2025-04-15 15:38] LABS: ALT 93 U/L (16-63); AST 42 U/L (15-37); Albumin 4.2 g/dL (3.4-5.0); Alkaline Phosphatase 112 U/L (46-116); Anion Gap 11.9 mmol/L (3-11); BUN 16 mg/dL (7-18); Bilirubin, Total 0.7 mg/dL (0.2-1.0); CO2 25.1 mmol/L (21.0-32.0); Calcium 9.5 mg/dL (8.5-10.1); Chloride 103 mmol/L (98-107); Estimated GFR 102.12 (mL/min/1.73m2); Glucose 258 mg/dL (74-106); Magnesium 1.8 mg/dL (1.8-2.4); Potassium 4.4 mmol/L (3.5-5.1); Sodium 140 mmol/L (136-145); Total Protein 7.1 g/dL (6.4-8.2); Uric Acid 4.7 mg/dL (3.5-7.2)
[2025-04-15 16:02] LABS: Hemoglobin A1C 9.4 % (<5.7)
[2025-04-15 16:22] LABS: Cholesterol 114 mg/dL (<200); HDL Cholesterol 36 mg/dL (>or=40); Triglyceride 411 mg/dL (<150); Vitamin B12 980 pg/mL (193-986)
[2025-04-15 18:07] LABS: LDL CHOLESTEROL 41 mg/dL (<100)
== END 2025-04-15 12:01 | disposition home or self-care (01) ==
LOC: NCHCN 12:00
PROVIDERS: PCP Nurse Practitioner Family; Visit Provider Nurse Practitioner Family
DX: M10.9 Gout, unspecified (principal); E78.1 Pure hyperglyceridemia; K75.81 Nonalcoholic steatohepatitis (NASH); E83.42 Hypomagnesemia; K29.70 Gastritis, unspecified, without bleeding; E11.9 Type 2 diabetes mellitus without complications
CPT/HCPCS: 80053; 80061; 83721; 82607; 83036; 83735; 84550; 85025

== ENCOUNTER 2025-05-22 15:33 | Outpatient (REF) | payer BC, SELFPAY ==
[2025-05-22 15:06] LABS: COMMENT (LAB VIEW ONLY) 70.35 mg/dL; Microalb ug/mg Crea 47.9 ug/mg Cr
[2025-05-22 23:25] LABS: Glucose 500 mg/dL (Negative)
== END 2025-05-22 15:34 | disposition home or self-care (01) ==
LOC: NCHCN 15:33
PROVIDERS: PCP Nurse Practitioner Family; Visit Provider Nurse Practitioner Family
DX: E11.9 Type 2 diabetes mellitus without complications (principal)
CPT/HCPCS: 81003; 82043; 82570